=== PATIENT | female | born 1990 | race Caucasian/White ===

== ENCOUNTER 2017-01-26 08:00 | Outpatient (CLI) | payer SELFPAY ==
[2017-01-26 21:06] LABS: BILIRUBIN,URINE NEGATIVE (NEGATIVE)
[2017-01-26 21:10] LABS: BASOPHILS # (AUTO) 0.1 10^3/uL (0.0-0.1); BASOPHILS % (AUTO) 0.8 %; EOSINOPHILS # (AUTO) 0.2 10^3/uL (0.0-0.7); EOSINOPHILS % (AUTO) 1.6 %; HCT - HEMATOCRIT 37.6 % (37.0-47.0); HGB - HEMOGLOBIN 12.8 g/dL (12.0-16.0); LYMPHOCYTES # (AUTO) 2.8 10^3/uL (1.5-3.5); LYMPHOCYTES % (AUTO) 22.8 %; MEAN CORPUSCULAR HEMOGLOBIN 29.7 pg (27.0-31.0); MEAN CORPUSCULAR HGB CONC 34.1 g/dL (32.0-36.0); MEAN CORPUSCULAR VOLUME 87.3 fL (81.0-99.0); MEAN PLATELET VOLUME 7.9 fL (7.9-10.8); MONOCYTES # (AUTO) 0.5 10^3/uL (0.0-1.0); MONOCYTES % (AUTO) 4.3 %; NEUTROPHILS # (AUTO) 8.6 10^3/uL (1.5-6.6); NEUTROPHILS % (AUTO) 70.5 %; RED BLOOD COUNT 4.31 10^6/uL (4.20-5.40); RED CELL DISTRIBUTION WIDTH 13.1 % (12.0-15.0); UNCORRECTED WHITE BLOOD COUNT 12.1 x10^3/uL; WHITE BLOOD COUNT 12.1 x10^3/uL (4.8-10.8)
[2017-01-26 21:18] LABS: WBC,URINE 0-3 /HPF (0-5)
[2017-01-26 21:19] LABS: UR CULTURE IF IND NOT INDICATED
[2017-02-01 20:28] LABS: TEST RESULT REPORT (())
== END 2017-02-15 23:59 | disposition home or self-care (01) ==
LOC: LAB.N 08:00
PROVIDERS: ATTEND Nurse Practitioner Obstetrics & Gynecology
DX: Z36 Encounter for antenatal screening of mother (principal)
CPT/HCPCS: 36415; 81001; 81599; 85025; 86762; 86850; 86900; 86901; 87086; 87340; 87389

== ENCOUNTER 2017-04-07 07:29 | Outpatient (CLI) | payer MEDICAID ==
--- NOTE | 2017-04-07 14:27 | Ultrasound Report ---
OB ULTRASOUND: 04/07/2017 CLINICAL INDICATION: anatomy. TECHNIQUE: Real-time scanning was performed with fraud representative static images obtained. LAST MENSTRUAL PERIOD 11/11/2016 Clinical Age 21 weeks 0 days US Age 21 weeks 5 days EFW Hadlock 440 grams EFW% Hadlock 78% Heart Rate 140 bpm EDC 08/18/2017 US EDC 08/13/2017 BPD Hadlock 22 weeks 0 days; Mean mm 53 HC Hadlock 21 weeks 6 days; Mean mm 196 AC Hadlock 21 weeks 4 days; Mean mm 165 FL Hadlock 21 weeks 4 days; Mean mm 37 Presentation moving Placental Location posterior Cervical Length 4.4 cm Amniotic Fluid 17.4 cm FINDINGS: There is a single viable intrauterine gestation, in variable position. heart rate is 140 BPM. The placenta is posterior, without evidence of previa. Amniotic fluid volume is subjectively normal. By size, the fetus measures 21 weeks 5 days (21 weeks 0 days by LMP). The following anatomic structures were visualized and appear normal: The intracranial contents, including the ventricles and posterior fossa; the lips and orbits; the spine; the heart, including 4-chamber view and outflow tracts, and diaphragm; the abdominal contents, including the stomach, the bilateral kidneys, and urinary bladder, as well as a normal 3- vessel cord insertion; 4 limbs. No free fluid or adnexal lesion is appreciated. IMPRESSION: SINGLE VIABLE INTRAUTERINE GESTATION, WITH SIZE IN KEEPING WITH LMP DATING. NORMAL ANATOMIC SURVEY. [facility]
== END 2017-04-07 07:30 | disposition home or self-care (01) ==
LOC: DI 07:29
PROVIDERS: ATTEND Registered Nurse
DX: Z36.3 Encounter for antenatal screening for malformations (principal)
CPT/HCPCS: 76811

== ENCOUNTER 2017-05-05 15:08 | Outpatient (CLI) | payer MEDICAID ==
[2017-05-05 16:38] LABS: HCT - HEMATOCRIT 34.9 % (37.0-47.0); HGB - HEMOGLOBIN 11.9 g/dL (12.0-16.0); MEAN CORPUSCULAR HEMOGLOBIN 31.3 pg (27.0-31.0); MEAN CORPUSCULAR HGB CONC 34.1 g/dL (32.0-36.0); MEAN PLATELET VOLUME 7.3 fL (7.9-10.8); RED BLOOD COUNT 3.8 10^6/uL (4.20-5.40); RED CELL DISTRIBUTION WIDTH 13.5 % (12.0-15.0); WHITE BLOOD COUNT 12.5 x10^3/uL (4.8-10.8)
[2017-05-05 16:43] LABS: ALBUMIN/GLOBULIN RATIO 0.9 (1.0-2.2); BILIRUBIN,TOTAL 0.4 mg/dL (0.2-1.0); CALCIUM 10.2 mg/dL (8.5-10.3); CREATININE 0.7 mg/dL (0.4-1.0); POTASSIUM 3.1 mmol/L (3.5-5.0)
== END 2017-05-05 15:09 | disposition home or self-care (01) ==
LOC: LAB 15:08
PROVIDERS: ATTEND Registered Nurse
DX: R03.0 Elevated blood-pressure reading, without diagnosis of hypertension (principal); Z34.82 Encounter for supervision of other normal pregnancy, second trimester
CPT/HCPCS: 36415; 80053; 82570; 82950; 84156; 86850

== ENCOUNTER 2017-05-06 14:39 | Outpatient (CLI) | payer MEDICAID | END 2017-05-06 14:40 | disposition home or self-care (01) | LOC: LAB.R 14:39 | PROVIDERS: ATTEND Registered Nurse | DX: R03.0 Elevated blood-pressure reading, without diagnosis of hypertension (principal) | CPT/HCPCS: 84156 ==

== ENCOUNTER 2017-06-02 12:43 | Outpatient (CLI) | payer MEDICAID ==
--- NOTE | 2017-06-06 15:53 | Ultrasound Report ---
OB FOLLOWUP: 06/02/2017 CLINICAL INDICATION: Size, date discrepancy. TECHNIQUE: Real-time scanning was performed with contracts representative static images obtained. LAST MENSTRUAL PERIOD: 11/06/2016 Clinical Age: 29 weeks 5 days US Age: 30 weeks 6 days EFW Hadlock: 1596 gm EFW% Hadlock: 67% Heart Rate: 127 bpm EDC: 08/13/2017 (on order 08/18/2017) US EDC: 08/05/2017 BPD Hadlock: 31 weeks 1 day; Mean mm 78 HC Hadlock: 32 weeks 1 day; Mean mm 292 AC Hadlock: 30 weeks 5 days; Mean mm 267 FL Hadlock: 29 weeks 4 days; Mean mm 56 Presentation: cephalic Placental Location: posterior Cervical Length: --- Amniotic Fluid: 20.1 FINDINGS There is a single viable intrauterine gestation, in cephalic presentation. heart rate is 127 BPM. The placenta is posterior, without evidence of previa. Amniotic fluid volume is normal, with an ESTRELLA of 20.1. By size, the fetus measures 30 weeks 6 days (29 weeks 5 days by previous scan ). No free fluid or adnexal lesion is appreciated. IMPRESSION: SINGLE VIABLE INTRAUTERINE GESTATION, WITH EXPECTED GROWTH FROM PREVIOUS SCAN. TD: 06/02/2017 16:03 GITA
== END 2017-06-02 12:44 | disposition home or self-care (01) ==
LOC: DI 12:43
PROVIDERS: ATTEND Registered Nurse
DX: O26.843 Uterine size-date discrepancy, third trimester (principal); Z3A.30 30 weeks gestation of pregnancy
CPT/HCPCS: 76816

== ENCOUNTER 2017-06-17 15:57 | Outpatient (CLI) | payer MEDICAID ==
[2017-06-17 16:20] VITALS: BP 142/81
[2017-06-17 17:14] LABS: HGB - HEMOGLOBIN 12.3 g/dL (12.0-16.0); MEAN CORPUSCULAR HEMOGLOBIN 30.6 pg (27.0-31.0); MEAN CORPUSCULAR HGB CONC 33.5 g/dL (32.0-36.0); MEAN CORPUSCULAR VOLUME 91.4 fL (81.0-99.0); MEAN PLATELET VOLUME 6.9 fL (7.9-10.8); RED BLOOD COUNT 4.01 10^6/uL (4.20-5.40); RED CELL DISTRIBUTION WIDTH 13.1 % (12.0-15.0); WHITE BLOOD COUNT 12.8 x10^3/uL (4.8-10.8)
[2017-06-17 17:26] LABS: ALBUMIN 3.3 g/dL (3.2-5.5); ALBUMIN/GLOBULIN RATIO 0.8 (1.0-2.2); BILIRUBIN,TOTAL 0.7 mg/dL (0.2-1.0); CALCIUM 9.5 mg/dL (8.5-10.3); CREATININE 0.6 mg/dL (0.4-1.0); TOTAL PROTEIN 7.2 g/dL (6.7-8.2)
[2017-06-17 18:57] LABS: CREATININE,URINE 88.8 mg/dL; PROTEIN/CREATININE RATIO,URINE 0.1 (<=0.2)
== END 2017-06-17 18:45 | disposition home or self-care (01) ==
LOC: WFO 15:57 → FBP 15:58 → WFO 18:45
PROVIDERS: ATTEND Registered Nurse
DX: O13.3 Gestational [pregnancy-induced] hypertension without significant proteinuria, third trimester (principal); Z3A.31 31 weeks gestation of pregnancy
CPT/HCPCS: 36415; 59025; 80053; 82570; 84156

== ENCOUNTER 2017-06-18 16:04 | Outpatient (CLI) | payer MEDICAID ==
[2017-06-18] MEDS ORDERED: BETAMETHASONE 30 MG/5 ML VIAL IM ONE (16:30)
== END 2017-06-18 16:30 | disposition home or self-care (01) ==
LOC: WFO 16:04 → FBP 16:06 → WFO 16:30
PROVIDERS: ATTEND Registered Nurse
DX: O13.3 Gestational [pregnancy-induced] hypertension without significant proteinuria, third trimester (principal); Z3A.31 31 weeks gestation of pregnancy

== ENCOUNTER 2017-06-19 17:21 | Outpatient (CLI) | payer MEDICAID ==
[2017-06-19] MEDS ORDERED: BETAMETHASONE 30 MG/5 ML VIAL IM ONE (17:27)
[2017-06-19 17:31] VITALS: BP 125/74
== END 2017-06-19 17:59 | disposition home or self-care (01) ==
LOC: WFO 17:21 → FBP 17:24 → WFO 17:59
PROVIDERS: ATTEND Registered Nurse
DX: O13.3 Gestational [pregnancy-induced] hypertension without significant proteinuria, third trimester (principal); Z3A.31 31 weeks gestation of pregnancy
CPT/HCPCS: 96372

== ENCOUNTER 2017-06-22 14:03 | Outpatient (CLI) | payer MEDICAID ==
[2017-06-22 14:20] VITALS: BP 141/92
== END 2017-06-22 14:35 | disposition home or self-care (01) ==
LOC: WFO 14:03 → FBP 14:06 → WFO 14:35
PROVIDERS: ATTEND Registered Nurse
DX: O13.3 Gestational [pregnancy-induced] hypertension without significant proteinuria, third trimester (principal); Z3A.31 31 weeks gestation of pregnancy
CPT/HCPCS: 59025

== ENCOUNTER 2017-06-24 08:00 | Outpatient (CLI) | payer MEDICAID | END 2017-06-24 08:01 | disposition home or self-care (01) | LOC: LAB.R 08:00 | PROVIDERS: ATTEND Registered Nurse | DX: R03.0 Elevated blood-pressure reading, without diagnosis of hypertension (principal); Z34.82 Encounter for supervision of other normal pregnancy, second trimester; Z36.85 Encounter for antenatal screening for Streptococcus B | CPT/HCPCS: 81599; 87081 ==

== ENCOUNTER 2017-06-24 17:14 | Outpatient (CLI) | payer MEDICAID ==
--- NOTE | 2017-06-24 22:18 | Ultrasound Report ---
EXAM: BIOPHYSICAL PROFILE OB EXAM DATE: 06/24/2017 06:27 PM. CLINICAL HISTORY: Gestational hypertension without significant proteinuria, third trimester. COMPARISON: OB ultrasound 06/02/2017. TECHNIQUE: Real-time sonographic evaluation of the fetus performed by the elementary school professional. Multiple repre sentative static images were saved for review. FINDINGS: Established EGA is 32 weeks 6 days with MARLA 08/13/2017. Cardiac activity 140 bpm. Presentation is cephalic. Placenta position is posterior. Amniotic fluid index measures 21.1 cm with an MVP of 7 cm, within normal limits. Cervical length appears long and closed measuring 4.5 cm. Biophysical profile: breathin movements: 2 tone: 2 Amniotic fluid: 2 Total score 8 out of 8. IMPRESSION: 1. Mendoza live intrauterine with gestational age 32 weeks 6 days based on established ED D of 08/13/2017. 2. Biophysical profile score 8 of 8, normal. MACARENA Referring Provider Line: [phone] SITE ID: [id number]
== END 2017-06-24 17:15 | disposition home or self-care (01) ==
LOC: DI 17:14
PROVIDERS: ATTEND Registered Nurse
DX: O13.3 Gestational [pregnancy-induced] hypertension without significant proteinuria, third trimester (principal); Z34.82 Encounter for supervision of other normal pregnancy, second trimester; Z36.85 Encounter for antenatal screening for Streptococcus B; R03.0 Elevated blood-pressure reading, without diagnosis of hypertension
CPT/HCPCS: 76819; 81599; 87081

== ENCOUNTER 2017-06-29 14:09 | Outpatient (CLI) | payer MEDICAID ==
[2017-06-29 15:09] VITALS: BP 138/81
== END 2017-06-29 15:55 | disposition home or self-care (01) ==
LOC: WFO 14:09 → FBP 14:10 → WFO 15:55
PROVIDERS: ATTEND Obstetrics & Gynecology
DX: O16.3 Unspecified maternal hypertension, third trimester (principal); Z3A.32 32 weeks gestation of pregnancy
CPT/HCPCS: 59025

== ENCOUNTER 2017-07-01 15:51 | Outpatient (CLI) | payer MEDICAID ==
--- NOTE | 2017-07-02 09:46 | Ultrasound Report ---
EXAM: ULTRASOUND BIOPHYSICAL PROFILE EXAM DATE: 07/01/2017 04:45 PM. CLINICAL HISTORY: Gestational hypertension. Check BPP. Established MARLA 08/13/2017 (33-6/7 weeks). COMPARISON: 06/24/2017. TECHNIQUE: Real-time sonographic evaluation of the fetus performed by the cylinder die machine operator. Multiple repre sentative static images were saved for review. GENERAL EVALUATION Mendoza . Cardiac activity: 152 bpm. movement: Visualized. Presentation: Breech. Placenta: Posterior. Amniotic fluid: Upper normal. ESTRELLA 22.8 cm. MVP 7.3 cm. BIOPHYSICAL PROFILE Breathing = 2 Movement = 2 Tone = 2 Amniotic Fluid = 2 Total 12/29 IMPRESSION: 1. Live fetus in breech presentation at 33-6/7 weeks based on the established MARLA of 08/13/2017. 2. Reassuring 12/29 BPP score. 3. Upper normal amniotic fluid volume, ESTRELLA 22.8. 4. Posterior placenta. MACARENA Referring Provider Line: [phone] SITE ID: [id number]
== END 2017-07-01 15:52 | disposition home or self-care (01) ==
LOC: DI 15:51
PROVIDERS: ATTEND Registered Nurse
DX: O13.3 Gestational [pregnancy-induced] hypertension without significant proteinuria, third trimester (principal); O32.1XX0 Maternal care for breech presentation, not applicable or unspecified; Z3A.33 33 weeks gestation of pregnancy
CPT/HCPCS: 76819

== ENCOUNTER 2017-07-06 14:25 | Outpatient (CLI) | payer MEDICAID ==
[2017-07-06 14:41] VITALS: BP 134/76
== END 2017-07-06 15:18 | disposition home or self-care (01) ==
LOC: WFO 14:25 → FBP 14:27 → WFO 15:18
PROVIDERS: ATTEND Obstetrics & Gynecology
DX: O13.3 Gestational [pregnancy-induced] hypertension without significant proteinuria, third trimester (principal); Z3A.33 33 weeks gestation of pregnancy
CPT/HCPCS: 59025

== ENCOUNTER 2017-07-08 15:01 | Outpatient (CLI) | payer MEDICAID ==
--- NOTE | 2017-07-08 18:52 | Ultrasound Report ---
BIOPHYSICAL PROFILE: 07/08/2017 CLINICAL INDICATION: Gestational hypertension. FINDINGS: The fetus receives 2 points for breathing, 2 points for movements, 2 points for tone, and 2 points for amniotic fluid volume, yielding a final score of 8/8. The fetus is in cephalic presentation. heart rate is 137 BPM. The placenta is posterior, without evidence of previa. IMPRESSION: 8/8 BIOPHYSICAL PROFILE. TD: 07/08/2017 18:51 GITA
--- NOTE | 2017-07-09 13:01 | Ultrasound Report ---
OB FOLLOWUP: 07/08/2017 CLINICAL INDICATION: Check growth. COMPARISON: 06/02/2017 TECHNIQUE: Real-time scanning was performed with financial service representative static images obtained. LAST MENSTRUAL PERIOD 11/06/2016 CLINICAL AGE 34 weeks 6 days US AGE 36 weeks 0 days EFW HADLOCK 2865 grams EFW% HADLOCK 81% HEART RATE 135 bpm EDC 08/13/2017 US EDC 08/05/2017 BPD HADLOCK 35 weeks 6 days; Mean mm 89 HC HADLOCK 37 weeks 2 days; Mean mm 329 AC HADLOCK 37 weeks 0 days; Mean mm 331 FL HADLOCK 34 weeks 0 days; Mean mm 66 PRESENTATION cephalic PLACENTAL LOCATION posterior CERVICAL LENGTH 3.9 cm AMNIOTIC FLUID 22.2 cm; MVP 6.3 cm FINDINGS There is a single viable intrauterine gestation, in cephalic presentation. heart rate is 135 BPM. The placenta is posterior, without evidence of previa. Amniotic fluid volume is normal, with an ESTRELLA of 22.2. By size, the fetus measures 36 weeks 0 days (34 weeks 6 days by previous sonogram). No free fluid or adnexal lesion is appreciated. IMPRESSION: SINGLE VIABLE INTRAUTERINE GESTATION, WITH EXPECTED GROWTH FROM PREVIOUS SONOGRAM. ESTIMATED WEIGHT BY HADLOCK METHOD IS 2865 GRAMS. TD: 07/08/2017 18:56 [facility]
== END 2017-07-08 15:02 | disposition home or self-care (01) ==
LOC: DI 15:01
PROVIDERS: ATTEND Registered Nurse
DX: O13.3 Gestational [pregnancy-induced] hypertension without significant proteinuria, third trimester (principal)
CPT/HCPCS: 76816; 76819

== ENCOUNTER 2017-07-09 08:03 | Outpatient (CLI) | payer MEDICAID ==
[2017-07-09 08:39] LABS: MEAN CORPUSCULAR HEMOGLOBIN 31.7 pg (27.0-31.0); MEAN CORPUSCULAR HGB CONC 35.8 g/dL (32.0-36.0); MEAN CORPUSCULAR VOLUME 88.7 fL (81.0-99.0); MEAN PLATELET VOLUME 6.9 fL (7.9-10.8); RED BLOOD COUNT 3.77 10^6/uL (4.20-5.40); RED CELL DISTRIBUTION WIDTH 13.4 % (12.0-15.0)
[2017-07-09 08:41] LABS: ALBUMIN 3.1 g/dL (3.2-5.5); ALBUMIN/GLOBULIN RATIO 0.8 (1.0-2.2); BILIRUBIN,TOTAL 0.5 mg/dL (0.2-1.0); CALCIUM 9.4 mg/dL (8.5-10.3); CREATININE 0.8 mg/dL (0.4-1.0); TOTAL PROTEIN 6.8 g/dL (6.7-8.2)
[2017-07-09 10:04] LABS: PROTEIN/CREATININE RATIO,URINE 0.1 (<=0.2)
== END 2017-07-09 08:04 | disposition home or self-care (01) ==
LOC: LAB 08:03
PROVIDERS: ATTEND Registered Nurse
DX: O13.3 Gestational [pregnancy-induced] hypertension without significant proteinuria, third trimester (principal)
CPT/HCPCS: 36415; 80053; 82570; 84156

== ENCOUNTER 2017-07-13 14:07 | Outpatient (CLI) | payer MEDICAID ==
[2017-07-13 14:46] VITALS: BP 124/78
== END 2017-07-13 14:52 | disposition home or self-care (01) ==
LOC: WFO 14:07 → FBP 14:10 → WFO 14:52
PROVIDERS: ATTEND Registered Nurse
DX: O13.3 Gestational [pregnancy-induced] hypertension without significant proteinuria, third trimester (principal); Z3A.34 34 weeks gestation of pregnancy
CPT/HCPCS: 59025

== ENCOUNTER 2017-07-15 15:14 | Outpatient (CLI) | payer MEDICAID ==
--- NOTE | 2017-07-16 00:50 | Ultrasound Report ---
EXAM: BIOPHYSICAL PROFILE EXAM DATE: 07/15/2017 05:17 PM. CLINICAL HISTORY: Gestational hypertension without significant proteinuria, third. COMPARISON: None. TECHNIQUE: Real-time sonographic evaluation of the fetus performed by the hotel front desk agent. Multiple repre sentative static images were saved for review. DATING: Established EGA 35 weeks 6 days with MARLA 08/13/2017. GENERAL EVALUATION Mendoza . Cardiac activity: 138 bpm. movement: Visualized. Presentation: Transverse with the head to the maternal left. Placenta: Posterior position. No evidence for previa or abruption. Amniotic fluid: Normal. ESTRELLA 22.8 cm. MVP 6.9 cm. Cervix is closed measuring 5.2 cm. BIOPHYSICAL PROFILE Breathing = 2 Movement = 2 Tone = 2 Amniotic Fluid = 2 Total 12/29 IMPRESSION: 1. Mendoza live intrauterine with gestational age 35.6 based on established MARLA. 2. Biophysical profile score 8 of 8. MACARENA Referring Provider Line: [phone] SITE ID: [id number]
== END 2017-07-15 15:15 | disposition home or self-care (01) ==
LOC: DI 15:14
PROVIDERS: ATTEND Registered Nurse
DX: O13.3 Gestational [pregnancy-induced] hypertension without significant proteinuria, third trimester (principal)
CPT/HCPCS: 76819

== ENCOUNTER 2017-07-19 15:27 | Outpatient (CLI) | payer MEDICAID ==
[2017-07-19 16:08] LABS: BASOPHILS # (AUTO) 0.1 10^3/uL (0.0-0.1); BASOPHILS % (AUTO) 0.8 %; CREATININE 0.7 mg/dL (0.4-1.0); EOSINOPHILS # (AUTO) 0.1 10^3/uL (0.0-0.7); EOSINOPHILS % (AUTO) 1.3 %; HGB - HEMOGLOBIN 11.7 g/dL (12.0-16.0); LYMPHOCYTES % (AUTO) 17.3 %; MEAN CORPUSCULAR HEMOGLOBIN 30.5 pg (27.0-31.0); MEAN CORPUSCULAR HGB CONC 34.4 g/dL (32.0-36.0); MEAN CORPUSCULAR VOLUME 88.6 fL (81.0-99.0); MEAN PLATELET VOLUME 6.9 fL (7.9-10.8); MONOCYTES # (AUTO) 0.7 10^3/uL (0.0-1.0); MONOCYTES % (AUTO) 6.3 %; NEUTROPHILS # (AUTO) 8.5 10^3/uL (1.5-6.6); NEUTROPHILS % (AUTO) 74.3 %; PLT - PLATELET COUNT 225 10^3/uL (130-450); RED BLOOD COUNT 3.83 10^6/uL (4.20-5.40); RED CELL DISTRIBUTION WIDTH 13.3 % (12.0-15.0); WHITE BLOOD COUNT 11.5 x10^3/uL (4.8-10.8)
[2017-07-19 16:10] LABS: URIC ACID 5.1 mg/dL (2.6-7.2)
[2017-07-19 16:51] VITALS: BP 139/89
[2017-07-19 16:57] LABS: CREATININE,URINE 72.8 mg/dL; PROTEIN/CREATININE RATIO,URINE 0.2 (<=0.2)
== END 2017-07-19 16:05 | disposition home or self-care (01) ==
LOC: WFO 15:27 → FBP 15:29 → WFO 16:05
PROVIDERS: ATTEND Registered Nurse
DX: O13.3 Gestational [pregnancy-induced] hypertension without significant proteinuria, third trimester (principal); Z3A.35 35 weeks gestation of pregnancy
CPT/HCPCS: 36415; 59025; 82565; 82570; 83615; 84156; 84450; 84460; 84550; 85025

== ENCOUNTER 2017-07-20 08:35 | Inpatient (IN) | payer MEDICAID ==
[2017-07-21] MEDS ORDERED: SODIUM CHLORIDE FLUSH 0.9% 10 ML SYRINGE ONE (07:54)
[2017-07-21] MEDS ORDERED: LABETALOL 20 MG/4 ML SYRINGE IV PRN (07:57)
[2017-07-21] MEDS ORDERED: fentaNYL 100 MCG/2 ML VIAL IVP PRN (07:57)
[2017-07-21] MEDS ORDERED: ONDANSETRON 4 MG/2 ML VIAL IVP PRN (07:57)
[2017-07-21] MEDS ORDERED: SODIUM CHLORIDE FLUSH 0.9% 10 ML SYRINGE IVP PRN (07:57)
[2017-07-21] MEDS ORDERED: OXYTOCIN/SODIUM CHLORIDE 250 ML IV ONE (07:57)
--- NOTE | 2017-07-21 08:29 | HISTORY & PHYSICAL EXAMINATION ---
Admit History - Instructions [place]/Slash: -Left hand click circles element as positive or present. -Right hand click slashes element as negative or not present. - Visit Reason Visit Reason: Other (Induction of labor for mild PET by BP criteria) - : 1 Parity: 0 Premature: 0 Ectopic: 0 : 0 Care: positive: [facility] (beginning in 1st trimester >12 visits) Risk/History: positive: None Complications This : positive: induced HTN, Pre- eclampsia (mild, BP criteria, TP:Cr 0.2; serum creatinine 0.7) Smoking Status: Never smoker - Mother's Labs Mother's Blood Type: positive: O Mother's RH: positive: Positive GBS: positive: Group B Step Negative Rubella Status: positive: Immune (Cinthia is a 27 y/o @ 36.0 weeks' gestation by 1st trimester US whose care has been complicated by GHTN w / elevated BP first noted 05/05/18 @ 24 weeks' gestation. Her PET evaluation has been consistently negative & 24-hr urine protein was 117mg/L. She began labetalol 100mg po BID @ 31 weeks' gestation secondary to persistently elevated BPs, and she required dosage increase to 200mg po BID @ 34 weeks' gestation in order to maintain normotensive status. Despite taking labetalol, she has continued to have labile BPs, with occasional readings exceeding 150/100. She has had an isolated episode of visual disturbances and no ELLIOTT or other neuro symptoms. She has had no RUQ/epigastric/shoulder pain. She has had serial SANGITA that have demonstrated normal EFW, most recently 07/08/17 81st percentile. She received betamethasone series @ 31 weeks' gestation secondary to her development of progressive hypertension @ that time. She screened negative for GBS @ 32 weeks' gestation. She presents today w/o complaint of uterine contractions, some cramping, no LOF/no VB; she reports good FM. We reviewed risks/benefits/alternatives to IOL & importance of patient, persistent preinduction cervical ripening as well as careful monitoring for developing severe PET & intervention as clinically warranted. We reviewed /maternal risks associated w/ expectant management vs. IOL. Pt & partner articulate full understanding of risks/benefits & elect IOL w/ preinduction cervical ripening utilizing buccal misoprostol. Full PARQ held. Informed consent obtained.) Meds/Allgy - Home Medications Home Medications: Ambulatory Orders Medication Instructions Recorded Confirmed Cephalexin [Keflex] 500 mg PO QID 7 Days capsule 02/05/15 - Allergies Allergies/Adverse Reactions: Allergies Allergy/AdvReac Type Severity Reaction Status Date / Time No Known Drug Allergies Allergy Verified 01/31/15 21:24 Physical - Abdominal Exam Vital Signs: BP this am s/p 200mg po labetalol 139/89, HR 92, T 97.2, RR 18 Contraction Frequency (min/apart): occasional Contraction Intensity: positive: Mild Uterine Resting Tone: positive: Soft - Monitoring Heart Rate Baseline: 135 Strip Review: positive: Category I - Presentation Presentation: positive: Vertex - Vaginal Exam Membranes: positive: Membranes intact Dilation (in cm): fingertip Effacement (%): 70 Station: positive: -3 Cervical Position: positive: Posterior (soft; Bishops score:) - Speculum Exam Speculum Exam Performed: positive: No - Other Notes Labor Progress Note/Additional Text: ROS: GEN: NO FEVER, CHILLS, SOME FATIGUE HEENT: NO ELLIOTT/VISUAL CHANGES RESP: NO SOB/DYSPNEA/COUGH CARDIAC: NO PALPITATIONS, CP, +EDEMA GI: NO N/V/D, + HEARTBURN : NO DYSURIA, +FREQUENCY, +URGENCY, OCC TRUPTI, NO CHANGES IN VAGINAL D/C OB: +FM, NO LOF/VB, NO PAINFUL CONTRACTIONS, SOME MILD CRAMPING MS: FROM, +B/L PITTING LE EDEMA, +FINGER/FACIAL EDEMA, NO PAIN SKIN: NO RASH, NO PRURITUS NEURO: NO DIZZINESS, NUMBNESS, TINGLING PSYCH: +ANXIETY RE: LABOR, NO DEPRESSION, HOPING FOR UNMEDICATED DELIVERY PE: GEN: AAOX3, NAD WA GRAVID FEMALE HEENT: GROSSLY NORMOCEPHALIC, ATRAUMATIC RESP: LUNGS CTA B/L T/O CARDIAC: RRR NLS1S2, I/ SYSTOLIC MURMUR, NO GALLOP, NO RUB GI: ABD GRAVID, NT, MOVEMENT PALPABLE, FETUS LONGITUDINAL, CEPHALIC PRESENTATION, EFW 7# : NO LESION, NO D/C OB: EFM: B/L 135BPM, + ACCELS, NO DECELS, MOD VARIABILITY, TOCO: OCC UTERINE CONTRACTIONS; SVE: FT/70/-3, IBOW, SOFT, POSTERIOR BISHOPS SCORE = 4 MS: FROM, +2 PITTING B/L LE EDEMA SKIN: WARM, WELL-PERFUSED, C/D/I; NO LESION NEURO: NO FOCAL DEFICIT, B/L LE DTRS +3, NO CLONUS PSYCH: NORMAL MOOD & AFFECT, MILD ANXIETY, WELL-SUPPORTED BY INVOLVED FOB ASSESSMENT: 27 Y/O @ 36 WEEKS' GESTATION BY 1ST TRIMESTER US, MILD PET BY BP CRITERIA, NORMOTENSIVE @ PRESENT, GBS NEGATIVE, CERVICAL STATUS UNFAVORABLE, FHTS CAT I, IBOW, ADEQUATE PAIN CONTROL, REASSURING SURVEILLANCE Plan for Labor - Plan For Labor Plan for Labor: 1. ADMIT TO OBS STATUS FOR CERVICAL RIPENING W/ BUCCAL MISOPROSTOL PER PROTOCOL 2. BUCCAL MISOPROSTOL 25MCG Q 4 HOURS 3. CAREFUL BP MONITORING W/ IV ANTIHYPERTENSIVE THERAPY INDICATED, MAGNESIUM SULFATE INFUSION INITIATION FOR ANY SEVERE-RANGE BPS 4. PET LABS Q 24 HOURS, MORE FREQUENTLY CLINICALLY INDICATED 5. STRICT I & O 6. REVIEWED PAIN MANAGEMENT OPTIONS 7. REASSESS CERVICAL STATUS W/ CLINICAL CHANGE, INITIATE PITOCIN INFUSION WHEN BISHOPS >9 8. EXTENSIVE REVIEW OF PROCESS OF PREINDUCTION CERVICAL RIPENING, ANTICIPATORY GUIDANCE, REVIEWED PET & ASSOCIATED RISKS, NEED FOR ONGOING CAREFUL MONITORING OF MATERNAL STATUS, STATUS, INTERVENTION INDICATED, REVIEWED POSSIBLE SCENARIOS 9. REVIEWED PLAN OF CARE W/ PT, PARTNER, RN @ BEDSIDE & BACKUP MD; ALL IN AGREEMENT, WITHOUT CONCERNS.
[2017-07-21] MEDS: miSOPROStol 100 MCG TABLET BC SCH ×3 (09:01→20:06)
[2017-07-21 09:10] LABS: CREATININE 0.6 mg/dL (0.4-1.0)
[2017-07-21 09:14] LABS: BASOPHILS # (AUTO) 0.1 10^3/uL (0.0-0.1); BASOPHILS % (AUTO) 0.5 %; EOSINOPHILS # (AUTO) 0.1 10^3/uL (0.0-0.7); EOSINOPHILS % (AUTO) 1.2 %; HGB - HEMOGLOBIN 11.4 g/dL (12.0-16.0); LYMPHOCYTES # (AUTO) 1.6 10^3/uL (1.5-3.5); LYMPHOCYTES % (AUTO) 13.7 %; MEAN CORPUSCULAR HEMOGLOBIN 31.2 pg (27.0-31.0); MEAN CORPUSCULAR HGB CONC 35.3 g/dL (32.0-36.0); MEAN CORPUSCULAR VOLUME 88.4 fL (81.0-99.0); MEAN PLATELET VOLUME 6.9 fL (7.9-10.8); MONOCYTES # (AUTO) 0.6 10^3/uL (0.0-1.0); MONOCYTES % (AUTO) 5.3 %; NEUTROPHILS # (AUTO) 9.2 10^3/uL (1.5-6.6); NEUTROPHILS % (AUTO) 79.3 %; PLT - PLATELET COUNT 228 10^3/uL (130-450); RED BLOOD COUNT 3.66 10^6/uL (4.20-5.40); RED CELL DISTRIBUTION WIDTH 12.9 % (12.0-15.0); WHITE BLOOD COUNT 11.6 x10^3/uL (4.8-10.8)
[2017-07-21] MEDS: OXYTOCIN/SODIUM CHLORIDE 500 ML IV SCH (09:37)
[2017-07-21] MEDS: LACTATED RINGERS 1,000 ML IV SCH (09:37)
[2017-07-21] MEDS: LABETALOL 100 MG TABLET PO SCH ×2 (09:38→20:05)
[2017-07-21 09:49] LABS: CREATININE,URINE 51.3 mg/dL; PROTEIN/CREATININE RATIO,URINE 0.1 (<=0.2)
[2017-07-21] MEDS: SODIUM CHLORIDE FLUSH 0.9% 10 ML SYRINGE IVP SCH ×2 (14:04→17:52)
--- NOTE | 2017-07-21 20:07 | PROVIDER PROGRESS NOTE ---
Labor Progress Note - Uterine Monitoring Uterine Monitoring Mode: positive: External toco Contraction Frequency (min/apart): 2-5 min Contraction Intensity: positive: Mild Uterine Resting Tone: positive: Soft - Monitoring Monitor Mode: positive: External ultrasound Heart Rate Baseline: 135bpm Heart Rate Variability: positive: Moderate (6-25 bmp) Accelerations: positive: Present, 15x15 Decelerations: positive: None Strip Review: positive: Category I - Labor Progress Note Labor Progress Note/Additional Text: S: Cinthia is feeling well. She denies ELLIOTT/visual disturbances, abdominal pain. She denies bloody show, LOF. She reports good FM. She has been tolerating po intake & has been judicious in recording her intake & output. Her partner, Christiano, is present @ the bedside & is supportive. She feels that she can rest tonight. She has some mild back discomfort but does not otherwise report pain. O: VS: T: 97.7; BP: 134/79, HR 77 RR 16 EFM: BL 135bpm, + accels, no decels, mod variability TOCO: irritability & UCs q2-5 min, palpably mild SVE: deferred secondary to no clinical indication & starting Reis's of 4 PET labs WNL, TP:Cr 0.1; fluid output exceeds input A: 27 y/o @ 36 weeks' gestation IOL for PET by BP criteria, no significant proteinuria Normotensive @ present FHTs cat I GBS neg w/ IBOW s/p BMZ x2 @ 32 weeks' gestation oral anti-hypertensive agents unfavorable cervical status, undergoing preinduction cervical ripening w/ buccal misoprostol, s/p 2 doses, no clinical change P: 1. continue buccal misoprostol 25mcg Q 4 hrs per protocol, reviewed options for dinoprostone vaginal insert vs. mechanical cervical ripening overnight, pt declines & elects to continue w/ misoprostol 2. Reviewed importance of patient, persistent preinduction cervical ripening 3. Continue careful BP & I/O monitoring, repeat PET labs in am 4. CEFM 5. Reassess cervical status x24 hours of cervical ripening, earlier PRN clinical indication 6. Initiate IV antihypertensive therapy & Mag Sulfate for severe-range BPs 7. Reviewed plan of care w/ pt, partner, RN @ bedside & Dr. Felisa MD, back-up FRAME CHANGER; all in agreement, without concerns.
[2017-07-22] MEDS: miSOPROStol 100 MCG TABLET BC SCH ×4 (00:06→21:35)
[2017-07-22 05:59] LABS: BASOPHILS # (AUTO) 0.1 10^3/uL (0.0-0.1); BASOPHILS % (AUTO) 0.5 %; EOSINOPHILS # (AUTO) 0.1 10^3/uL (0.0-0.7); HGB - HEMOGLOBIN 11.7 g/dL (12.0-16.0); LYMPHOCYTES # (AUTO) 2.1 10^3/uL (1.5-3.5); LYMPHOCYTES % (AUTO) 13.9 %; MEAN CORPUSCULAR HGB CONC 34.8 g/dL (32.0-36.0); MEAN CORPUSCULAR VOLUME 89.1 fL (81.0-99.0); MEAN PLATELET VOLUME 6.8 fL (7.9-10.8); MONOCYTES # (AUTO) 0.9 10^3/uL (0.0-1.0); MONOCYTES % (AUTO) 6.2 %; NEUTROPHILS # (AUTO) 11.6 10^3/uL (1.5-6.6); NEUTROPHILS % (AUTO) 78.4 %; PLT - PLATELET COUNT 218 10^3/uL (130-450); RED BLOOD COUNT 3.77 10^6/uL (4.20-5.40); RED CELL DISTRIBUTION WIDTH 13.2 % (12.0-15.0); WHITE BLOOD COUNT 14.8 x10^3/uL (4.8-10.8)
[2017-07-22 06:02] LABS: CREATININE 0.7 mg/dL (0.4-1.0)
[2017-07-22] MEDS: SODIUM CHLORIDE FLUSH 0.9% 10 ML SYRINGE IVP SCH ×3 (06:35→15:09)
[2017-07-22] MEDS: LABETALOL 100 MG TABLET PO SCH ×2 (08:06→20:01)
--- NOTE | 2017-07-22 09:37 | PROVIDER PROGRESS NOTE ---
Labor Progress Note - Uterine Monitoring Uterine Monitoring Mode: positive: External toco Contraction Frequency (min/apart): mild UCs Contraction Intensity: positive: Mild Uterine Resting Tone: positive: Soft - Monitoring Monitor Mode: positive: External ultrasound Heart Rate Baseline: 145 Heart Rate Variability: positive: Moderate (6-25 bmp) Accelerations: positive: Present, 15x15 Decelerations: positive: None - Vaginal Exam Dilation (in cm): deferred - Labor Progress Note Labor Progress Note/Additional Text: S: Cinthia is doing well, able to rest overnight. Some back discomfort. No pain w/ uterine irritability/contractions. Christiano is present @ the bedside & supportive. Cinthia denies ELLIOTT/visual disturbances/abdominal discomfort. No bloody show. No LOF. O: VS: BP 131/77; T 97.8; HR 98; RR 18 EFM: BL 145bpm, +accels, no decels, mod jermaine TOCO: Irreg uterine irritability, mild contractions SVE: not indicated; no clinical change--last misoprostol dosing 00:00 H/H/PLT stable; PET labs stable A: 27 y/o @ 36w1d mild PET by BP criteria Normotensive @ present on oral antihypertensive Unfavorable cervical status w/ Eris's of 4 on admit, s/p 4 buccal doses of misoprostol in 24 hour-period GBS negative, IBOW FHTs cat I Adequate pain control, not in labor PET labs stable P: 1. Continue cervical ripening w/ buccal misoprostol per protocol, recommend dosing q 4 hours, reviewed protocol w/ RN & orders, will get 5th dose of misoprostol now & reassess cervical status @ 1200, earlier PRN 2. Continue careful BP/I&O monitoring 3. PET labs daily, more frequently as indicated 4. IV antihypertensive therapy PRN severe-range BPs 5. Encouraged ambulation, diversionary activity
--- NOTE | 2017-07-22 17:06 | PROVIDER PROGRESS NOTE ---
Labor Progress Note - Uterine Monitoring Uterine Monitoring Mode: positive: External toco Contraction Frequency (min/apart): 2-6 Contraction Intensity: positive: Mild to moderate Uterine Resting Tone: positive: Soft - Monitoring Monitor Mode: positive: External ultrasound Heart Rate Baseline: 130 Heart Rate Variability: positive: Moderate (6-25 bmp) Accelerations: positive: Present, 15x15 Decelerations: positive: None Strip Review: positive: Category I - Vaginal Exam Dilation (in cm): FT Effacement (%): 75 Station: 1 Cervical Position: Anterior (soft, Reis's score =9) - Labor Progress Note Labor Progress Note/Additional Text: S: Cinthia reports some cramping discomfort & lower back discomfort w/ uterine contractions. No LOF, no VB. +FM. No ELLIOTT/visual disturbances/abd pain. Ambulating. Has used ball some & jacuzzi. Feeling irritated about FHT monitoring. Tolerating po intake. Christiano & her mother @ bedside, supportive. O: VS: T 98.1 HR 95 BP 133/83 RR 20 EFM: BL 130bpm, +accels, no decels, mod jermaine TOCO: UCs q2-6 min, palp mod SVE: FT/75%/+1/anterior/soft; IBOW, position difficult to discern; Reis' s score now 9 PET labs stable O > I A: 27 y/o @ 36w1d by 1st trimester US, mild PET by BP criteria Normotensive on oral antihypertensive therapy s/p prostaglandin cervical ripening GBS negative w/ IBOW FHTs cat I Adequate pain control, not in labor No s/sx severe PET P: 1. Reviewed options for management @ this point, pt elects 1 more dose buccal misoprostol followed by linn balloon insertion to increase cervical dilation if no progressive cervical change; due for misoprostol @ 1900, reviewed all options 2. Continue careful BP & I/O monitoring, PET labs in am unless clinically indicated prior 3. IV antihypertensive therapy/Mag Sulfate for severe-range BPs 4. Reviewed optimal positioning, diversionary activity 5.Will reassess cervical status s/p next dose of misoprostol, earlier PRN 6. Reviewed plan of care w/ pt, partner, RN @ bedside & Dr. Felisa MD, back-up DIRECTOR NEWS; all in agreement, without concerns.
--- NOTE | 2017-07-23 02:21 | PROVIDER PROGRESS NOTE ---
Labor Progress Note - Uterine Monitoring Uterine Monitoring Mode: positive: External toco Contraction Frequency (min/apart): 2-5 Contraction Intensity: positive: Mild to moderate Uterine Resting Tone: positive: Soft - Monitoring Monitor Mode: positive: External ultrasound Heart Rate Baseline: 125 Heart Rate Variability: positive: Moderate (6-25 bmp) Accelerations: positive: Present, 15x15 Decelerations: positive: None Strip Review: positive: Category I - Vaginal Exam Dilation (in cm): 1 Effacement (%): 75 Station: 1 Cervical Position: Anterior (soft; Reis's =10) - Labor Progress Note Labor Progress Note/Additional Text: S: Cinthia is doing well, although she is mildly frustrated by her slow progress; she reports significant lower back discomfort & difficulty sleeping as a result. She has no abdominal discomfort. She has had a little bloody show when using the restroom. She denies ELLIOTT/vision changes. She desires sleep aid & cervical catheter placement for further cervical ripening, would like to be off the monitor as able to promote sleep this evening, as she had limited ability to sleep last night. Full PARQ held re: placement of [place] Cervical Ripening Catheter, pt desires placement. O: T: 98.1 HR 95 BP 122/70 RR 18 EFM: BL 125bpm, +accels, no decels, mod jermaine TOCO: uterine irritability & palpable uterine contractions q2-5 min x60 seconds SVE: 1/75/+1/anterior/soft, Reis's 10; IBOW, position difficult to appreciate 18Fr Tayla catheter placed w/ ease through cervical os using speculum for direct visualization, inflated w/ sterile NaCl, 60mL uterine balloon, 40mL vaginal balloon, traction applied & catheter secured w/ adhesive to medial aspect L thigh; pt aline well. A: 27 y/o @ 36w2d for IOL secondary to mild PET by BP criteria, PET labs WNL s/p prostaglandin cervical ripening x7 doses buccal misoprostol favorable cervical status w/ minimal dilatation Normotensive on po antihypertensive agent--no severe-range BPs since admission GBS negative w/ IBOW FHTs consistently cat I Lumbar discomfort Difficulty sleeping; not in active labor P: 1. Tayla catheter placed; will reassess cervical status x12 hours or w/ expulsion, earlier PRN 2. PET labs this am 3. 50mg vistaril IM x1 to assist w/ sleep 4. K-pad to lower back 5. Reviewed optimal positioning, encouraged maternal rest in lateral recumbent position w/ peanut ball in place 6. ok to d/c CEFM for rest, reassess FHTs x4 hours, reassess BP x4 hours 7. Reviewed cervical ripening process, anticipate initiation of Pitocin w/ expulsion of balloon, reviewed @ length 8. Ongoing careful monitoring of I/O, PET labs, VS; initiation of IV antihypertensives & Mag Sulfate for severe-range BPs 9. Reviewed plan of care w/ pt, RN @ bedside & Dr. Felisa MD; all in agreement, without concerns.
[2017-07-23] MEDS ORDERED: MAGNESIUM HYDROXIDE 2,400 MG/30 ML UDC PO PRN (02:29)
[2017-07-23] MEDS: SODIUM CHLORIDE FLUSH 0.9% 10 ML SYRINGE IVP SCH (04:14)
[2017-07-23] MEDS: LACTATED RINGERS 1,000 ML IV SCH ×4 (06:38→16:18)
[2017-07-23 06:40] LABS: BASOPHILS # (AUTO) 0.1 10^3/uL (0.0-0.1); BASOPHILS % (AUTO) 0.3 %; EOSINOPHILS % (AUTO) 0.2 %; HGB - HEMOGLOBIN 13.1 g/dL (12.0-16.0); LYMPHOCYTES # (AUTO) 1.1 10^3/uL (1.5-3.5); LYMPHOCYTES % (AUTO) 5.6 %; MEAN CORPUSCULAR HEMOGLOBIN 30.8 pg (27.0-31.0); MEAN CORPUSCULAR HGB CONC 34.8 g/dL (32.0-36.0); MEAN CORPUSCULAR VOLUME 88.5 fL (81.0-99.0); MEAN PLATELET VOLUME 6.8 fL (7.9-10.8); MONOCYTES # (AUTO) 0.5 10^3/uL (0.0-1.0); MONOCYTES % (AUTO) 2.7 %; NEUTROPHILS # (AUTO) 17.3 10^3/uL (1.5-6.6); NEUTROPHILS % (AUTO) 91.2 %; PLT - PLATELET COUNT 235 10^3/uL (130-450); RED BLOOD COUNT 4.28 10^6/uL (4.20-5.40)
[2017-07-23 06:52] LABS: CREATININE 0.7 mg/dL (0.4-1.0); URIC ACID 6.3 mg/dL (2.6-7.2)
[2017-07-23] MEDS ORDERED: fent/BUPIV 2 MCG/0.125% 250 ML EP ONE (07:05)
[2017-07-23] MEDS ORDERED: BUPIVACAINE 0.25% PF 10 ML VIAL SUBQ ONE (07:25)
[2017-07-23] MEDS ORDERED: fent/BUPIV 2 MCG/0.125% 250 ML EP PRN (07:30)
[2017-07-23] MEDS ORDERED: LACTATED RINGERS 500 ML IV ONE (07:30)
[2017-07-23] MEDS ORDERED: NALOXONE 0.4 MG/ML VIAL IVP PRN (07:30)
[2017-07-23] MEDS ORDERED: NALBUPHINE 20 MG/ML AMP IVP PRN (07:30)
[2017-07-23] MEDS ORDERED: ONDANSETRON 4 MG/2 ML VIAL IVP PRN (07:30)
[2017-07-23] MEDS ORDERED: ePHEDrine 50 MG/ML VIAL IVP PRN (07:30)
--- NOTE | 2017-07-23 08:26 | PROVIDER PROGRESS NOTE ---
Labor Progress Note - Uterine Monitoring Uterine Monitoring Mode: positive: External toco Contraction Frequency (min/apart): erratic contaction activity q 2-6 minutes Contraction Intensity: positive: Moderate Uterine Resting Tone: positive: Soft - Monitoring Monitor Mode: positive: Spiral electrode (placed w/o incident for unclear decelerations assessed by external FHT monitoring w/ Doppler) Heart Rate Baseline: 145 Heart Rate Variability: positive: Moderate (6-25 bmp) Accelerations: positive: Present, 15x15 Decelerations: positive: None Strip Review: positive: Category I - Vaginal Exam Dilation (in cm): 4-5 Effacement (%): 75 Station: -1 Cervical Position: Anterior - Labor Progress Note Labor Progress Note/Additional Text: S: Cinthia is comfortable w/ her epidural in place & is looking forward to being able to sleep. Christiano & her mother are @ the bedside, involved & supportive. I was called to assess pt secondary to some FHT decelerations on external Doppler assessment s/p epidural placement, honey in 90s over a period of 90 seconds x3 w/ return to baseline w/ intrauterine resuscitation; on review of strip, appear to be mirroring maternal HR @ that time. O: T 98.1 HR 78bpm, BP 125/60, RR 18 EFM: FSE placed w/o incident, s/p removal of Tayla catheter, AROM w/ FSE for copious CAF; BL 145bpm, + accels, no decels, mod variability TOCO: UCs q 2-6 minutes SVE: 4-5/75%/-1, leaking copious CAF PET labs stable: Cr presently 0.7, AST 30 A: 27 y/o @ 36w2d, mild PET by BP criteria, normotensive on oral antihypertensive agent No severe-range BPs since admission Stable PET labs I < O GBS negative, AROM for CAF s/p effective prostglandin/mechanical cervical ripening Adequate pain control w/ epidural anesthesia FHTs presently Cat I P: 1. Reassess cervical status x2 hours, earlier PRN; if no cervical change, begin Pitocin infusion & titrate per protocol to adequate contraction pattern by tocometry 2. Continue ongoing careful monitoring of BP; initiate IV antihypertensive/Mag Sulfate therapy for severe-range BPs 3. Continue daily PET labs, more frequent assessment as clinically indicated 4. Continue ongoing strict I&O 5. Encouraged maternal rest; reviewed optimal positioning to encourage rotation & descent, particularly s/p de-stationing w/ Tayla catheter placement 6. Reviewed plan of care w/ pt, partner & RN @ bedside; Dr. Morgan DO, back-up MD, notified as to pt clinical status; all in agreement, without concerns.
[2017-07-23] MEDS ORDERED: OXYTOCIN/SODIUM CHLORIDE 500 ML IV SCH (09:00)
[2017-07-23] MEDS: OXYTOCIN/SODIUM CHLORIDE 500 ML IV SCH (10:31)
--- NOTE | 2017-07-23 12:55 | PROVIDER PROGRESS NOTE ---
Labor Progress Note - Uterine Monitoring Uterine Monitoring Mode: positive: IUPC (placed w/ ease secondary to difficulty assessing contraction frequency, intensity, duration) Contraction Intensity: positive: Mild to moderate Uterine Resting Tone: positive: Soft Other Uterine Monitoring: Baseline 0mmHg, peak 25mmHg w/ 1mU/min Pitocin infusing - Monitoring Monitor Mode: positive: Spiral electrode Heart Rate Baseline: 135 Heart Rate Variability: positive: Moderate (6-25 bmp) Accelerations: positive: Present, 15x15 Decelerations: positive: Late (occasional to honey in 80s, late-appearing ; difficult to assess secondary to poor tocometry; resolution w/ intrauterine resuscitative measures) Strip Review: positive: Category II - Vaginal Exam Dilation (in cm): 5 Effacement (%): 75 Station: -1 Cervical Position: Anterior (soft) - Labor Progress Note Labor Progress Note/Additional Text: S: Cinthia is comfortable w/ her epidural; she has had minimal rest. She denies ELLIOTT/visual disturbance/any pain. Christiano is present @ the bedside & is supportive O: VS: T: 98.1 HR 98bpm, RR 18 BP 119/73 EFM (FSE) BL 135 + accels, occ late-appearing decels w/ isolated decel w/ honey in 80s, spontaneous return to baseline <60 seconds, non-repetitive; difficult to assess true nature of decelerations secondary to poor tocometry IUPC: placed w/ ease; ongoing leakage of copious CAF; baseline 0mmHg, peak 25mmHg, frequency q 4 min, MVU presently 75 SVE: 5/75/-1, anterior, soft, position LOP O>I A: 27y/o @ 36w2d by first trimester US, IOL for mild PET by BP criteria Normotensive on oral antihypertensive agents, no severe-range BPs since admission s/p effective prostaglandin/mechanical cervical ripening, minimal cervical change w/ Pitocin infusion titrated to a max of 2mU/min infusion GBS negative, AROM x5 hours for CAF, afebrile FHTs cat II, without evidence of hypoxemia Adequate pain control w/ epidural anesthesia malposition P: 1. Once FHTs consistently cat I x30 minutes, resume Pitocin infusion & titrate per protocol to adequacy by MVU 2. Continue ongoing careful monitoring of BP/I&O, intervention as clinically warranted 3. Reassess cervical status 2 hours s/p establishment of adequate labor by MVU, earlier PRN 4. Reviewed implications of malposition & optimal maternal positioning to facilitated rotation & descent 5. Reviewed plan of care w/ pt, partner, RN @ bedside; all in agreement, without concerns; Dr. Mora, DO, updated as to pt's current clinical status
[2017-07-23] MEDS: LABETALOL 100 MG TABLET PO SCH ×2 (16:26→20:48)
[2017-07-23] MEDS ORDERED: LIDOCAINE 1% 50 ML MDV ONE (17:46)
[2017-07-23] MEDS ORDERED: MINERAL OIL LIGHT 10 ML MC ONE (17:47)
[2017-07-23] MEDS ORDERED: OXYTOCIN/SODIUM CHLORIDE 250 ML IV ONE (19:07)
--- NOTE | 2017-07-23 19:18 | DELIVERY NOTE ---
Delivery Note - Labor Labor: positive: Induced by oxytocin (s/p cervical ripening w/ misoprostol x7 buccal doses of 25mcg & Tayla catheter transcervical placement) - Delivery Method Delivery Method: positive: Spontaneous vaginal delivery - Cervical Ripening Method Cervical Ripening Method: positive: Balloon device, Misoprostil - Presentation Presentation: positive: Vertex, DENIS - right occiput anterior - Nuchal Cord Nuchal Cord: positive: Present, Reduced (x1) - Anesthetic Anesthetic Type: - Amniotic Fluid Description Amniotic Fluid Description: positive: Clear - Episiotomy Type Episiotomy Type: positive: None - Laceration Laceration: positive: None - Delivery Outcome Delivery Outcome: positive: Livebirth - : positive: Placed in direct skin contact with mother, Stimulated, Warmed , [place] used Richards sex: positive: Male - Cord Cord: positive: 3 vessels, True knot - Placenta Placenta: positive: Intact, Spontaneous - Estimated Blood Loss Estimated Blood Loss (in cc): 350 - Post Delivery Events Post Delivery Events: positive: No post delivery events - Delivery Comments (Free Text/Narrative) Delivery Comments (Free Text/Narrative): Cinthia Cowan is a 27 y/o [id number] who received care beginning in the first trimester & was dated by a first trimester ultrasound, which was consistent w/ her menstrual dating. Her course was complicated by a hx of anxiety/depression, which were stable during the course of her , and by the development of gestational HTN w/o significant proteinuria beginning in her 31st week of . She received BMZ course & began oral antihypertensive therapy, which required titration to a maximum of 200mg po BID. She presented with increased BP to 160s/100s in her 36th week of & had been having twice weekly antepartum surveillance, which was reassuring. PET labs were stable & negative, and she did not have any notable neurologic signs. She had a SANGITA that demonstrated EFW 81st percentile. A decision was made to induce her labor & she underwent preinduction cervical ripening w/ 7 doses of buccal misoprostol followed by transcervical Custer catheter placement. She then underwent AROM for copious CAF & received an epidural for anesthesia. She received Pitocin infusion for induction of labor. FHTs were monitored electronically t/o & IUPC was placed to facilitate titration of Pitocin. She was 5cm @ 1300 & progressed readily to complete dilatation @ 1745, for a total first stage duration of 4.75 hours. Pt pushed w / spontaneous urge & some direction to viable male in DENIS position over an intact perineum @ 1805, for a total 2nd stage duration of 20 minutes. FHTs monitored electronically & reassuring t/o. Nuchal cord x1 reduced prior to delivery of shoulders/body. vigorous w/ spontaneous, lusty cry. Placed to maternal abdomen for drying/stim. True knot x1 noted in cord. Delayed cord clamping x1 minute, then cord clamped x2 by CNM, cut by FOB. 3VC noted. Apgars 8/9 & weight pending. Active management of the 3rd stage of labor w/ Pitocin in IV fluids, placenta del spontaneously & intact, [place], @ 1812, for a total 3rd stage duration of 7 min. Fundus firm @ U. EBL 350mL. Vagina & perineum inspected & found to be intact. remains [id number] w/ mother, nuzzling @ breast. Mother & stable. No severe-range BPs throughout the course of cervical ripening or labor. Will continue to monitor.
[2017-07-23] MEDS ORDERED: LACTATED RINGERS 1,000 ML IV SCH (20:00)
[2017-07-23] MEDS: DOCUSATE SODIUM 100 MG CAPSULE PO SCH (20:49)
[2017-07-23] MEDS: CELECOXIB 100 MG CAPSULE PO SCH (21:08)
[2017-07-24 05:55] LABS: BASOPHILS # (AUTO) 0.1 10^3/uL (0.0-0.1); BASOPHILS % (AUTO) 0.8 %; EOSINOPHILS # (AUTO) 0.1 10^3/uL (0.0-0.7); EOSINOPHILS % (AUTO) 0.5 %; HGB - HEMOGLOBIN 11.2 g/dL (12.0-16.0); LYMPHOCYTES # (AUTO) 2.1 10^3/uL (1.5-3.5); LYMPHOCYTES % (AUTO) 12.2 %; MEAN CORPUSCULAR HEMOGLOBIN 30.4 pg (27.0-31.0); MEAN CORPUSCULAR HGB CONC 34.5 g/dL (32.0-36.0); MEAN CORPUSCULAR VOLUME 88.2 fL (81.0-99.0); MEAN PLATELET VOLUME 6.6 fL (7.9-10.8); MONOCYTES # (AUTO) 1.2 10^3/uL (0.0-1.0); MONOCYTES % (AUTO) 6.9 %; NEUTROPHILS # (AUTO) 13.7 10^3/uL (1.5-6.6); NEUTROPHILS % (AUTO) 79.6 %; PLT - PLATELET COUNT 224 10^3/uL (130-450); RED BLOOD COUNT 3.69 10^6/uL (4.20-5.40); RED CELL DISTRIBUTION WIDTH 13.5 % (12.0-15.0); WHITE BLOOD COUNT 17.2 x10^3/uL (4.8-10.8)
[2017-07-24 06:10] LABS: CREATININE 0.6 mg/dL (0.4-1.0)
[2017-07-24] MEDS: DOCUSATE SODIUM 100 MG CAPSULE PO SCH ×2 (08:53→20:36)
[2017-07-24] MEDS: LABETALOL 100 MG TABLET PO SCH ×2 (08:53→20:36)
[2017-07-24] MEDS: CELECOXIB 100 MG CAPSULE PO SCH ×2 (08:53→20:36)
--- NOTE | 2017-07-24 14:56 | PROVIDER PROGRESS NOTE ---
Subjective - Prog Note Date Prog Note Date: 07/24/17 Prog Note Time: 14:45 - Subjective Pt reports feeling: Improved Subjective: Cinthia is feeling well. Pain is well-controlled w/o opioid analgesia. She is ambulating & voiding w/o difficulty. No ELLIOTT/vision changes. Minimal lochia rubra. She is well w/o discomfort. She is tolerating po intake. Objective - Vital Signs/Intake & Output Reviewed Vital Signs: Yes Vital Signs: Vital Signs x48h Temp Pulse Resp BP BP Pulse Ox 07/24/17 13:15 36.4 C L 86 16 128/82 H 100 07/24/17 09:00 37.1 C 89 18 134/91 H 99 Intake & Output: Intake & Output 07/21/17 07/22/17 07/23/17 07/24/17 23:59 23:59 23:59 23:59 Intake Total 1805 1125 3356 Output Total 2275 2475 1255 Balance -470 -1350 2101 - Objective General Appearance: positive: No acute distress, Alert Eyes Bilateral: positive: Normal inspection Respiratory: positive: Chest non-tender, No respiratory distress, Breath sounds nml Cardiovascular: positive: Regular rate & rhythm, No murmur Rectal: positive: Non-tender, Other (FF U-1) Skin: positive: Color nml, No rash, Warm, Dry Extremities: positive: Non-tender, Full ROM. negative: Pedal edema, Calf tenderness Neurologic/Psychiatric: positive: Oriented x3, CN's nml (2-12), Motor nml, Sensation nml, Mood/affect nml Comments/Other: Nipples b/l intact & everted; breasts s, nt; colostrum readily expressible perineum intact, no edema/erythema/ecchymosis, minimal lochia rubra - Lab Results Fish Bones: 07/24/17 05:47 07/24/17 05:47 Other Labs: Lab Results x24hrs 07/24/17 07/24/17 Range/Units 05:47 05:47 WBC 17.2 H (4.8-10.8) x10^3/uL RBC 3.69 L (4.20-5.40) 10^6/uL Hgb 11.2 L (12.0-16.0) g/dL Hct 32.5 L (37.0-47.0) % MCV 88.2 (81.0-99.0) fL MCH 30.4 (27.0-31.0) pg MCHC 34.5 (32.0-36.0) g/dL RDW 13.5 (12.0-15.0) % Plt Count 224 (130-450) 10^3/uL MPV 6.6 L (7.9-10.8) fL Neut # 13.7 H (1.5-6.6) 10^3/uL Lymph # 2.1 (1.5-3.5) 10^3/uL [place] # 1.2 H (0.0-1.0) 10^3/uL Eos # 0.1 (0.0-0.7) 10^3/uL Baso # 0.1 (0.0-0.1) 10^3/uL Absolute Nucleated RBC 0.00 x10^3/uL Nucleated RBC % 0.0 /100WBC Creatinine 0.6 (0.4-1.0) mg/dL Estimated GFR (MDRD) 122 (>89) AST 32 (10-42) IU/L Assessment/Plan - Problem List (1) (normal spontaneous vaginal delivery) Impression: A: 27 y/o PPD#1 s/p w/o laceration, s/p IOL for mild PET by BP criteria, normotensive w/o s/sx severe or progressive PET, well, adequate pain control, normal uterine involution P: 1. Continue routine PP care 2. support provided & to continue in ongoing fashion 3. Continue careful BP monitoring 4. Anticipate D/C home PPD #2
[2017-07-24] MEDS: ACETAMINOPHEN 325 MG TABLET PO PRN (16:53)
[2017-07-25] MEDS: ACETAMINOPHEN 325 MG TABLET PO PRN ×3 (04:43→20:57)
[2017-07-25] MEDS: DOCUSATE SODIUM 100 MG CAPSULE PO SCH (09:06)
[2017-07-25] MEDS: CELECOXIB 100 MG CAPSULE PO SCH ×2 (09:06→20:58)
[2017-07-25] MEDS: LABETALOL 100 MG TABLET PO SCH ×2 (09:07→20:58)
--- NOTE | 2017-07-25 16:18 | Discharge Plan ---
Discharge Plan Disposition: 01 Home, Self Care Condition: Good Diet: Regular Activity Restrictions: pelvic rest x6 weeks Shower Restrictions: No Driving Restrictions: No Weight Bearing: Full Weight Instruction Topics: Preeclampsia, Exercises Kegel, Vaginal, Vaginal After, Breastfeed Holds, Breastfeed How To, Breastmilk Expressing, Breastmilk Storage, Childbirth Breast Care, Nutrition No Smoking: If you smoke, Please STOP! Call for help. Follow-up with: Jose Raul Bradford CNM, [place] [Provider Admit Priv/Credential] -
--- NOTE | 2017-07-25 16:22 | DISCHARGE SUMMARY ---
"Discharge Summary Admit Date: 07/21/17 Discharge Date: 07/25/17 Discharging Provider: brett Code Status: Attempt Resuscitation Condition at Discharge: Good Discharge Disposition: 01 Home, Self Care Discharge Facility Name: [facility] - DIAGNOSES Admission Diagnoses: MILD PRE-ECLAMPSIA 36 WEEKS GESTATION PRIMIGRAVIDA Discharge Diagnoses with Status of Each Condition: - HPI History of Present Illness: GERMAN CHE IS A 27 Y/O [id number] WHO WAS ADMITTED FOR PREINDUCTION CERVICAL RIPENING FOR INDUCTION OF LABOR SECONDARY TO MILD PET BY BP CRITERIA. SHE DID NOT HAVE SEVERE-RANGE BPS NECESSITATING IV ANTIHYPERTENSIVES OR MAGNESIUM SULFATE INFUSION DURING HER HOSPITAL STAY & HER PET LABS WERE WNL. SHE RECEIVED 7 BUCCAL DOSES OF MISOPROSTOL 25MCG & THEN UNDERWENT TRANSCERVICAL MODESTA CATHETER PLACEMENT FOR EFFECTIVE CERVICAL RIPENING. SHE RECEIVED AN EPIDURAL FOR ANESTHESIA & HAD FSE & IUPC PLACEMENT TO ENSURE ACCURACY OF MONITORING & APPROPRIATE TITRATION OF PITOCIN INFUSION. FHTS WERE CONSISTENTLY REASSURING, CAT I-II. SHE PROGRESSED W/ PITOCIN INFUSION TO COMPLETE DILATATION & DELIVERED VAGINALLY OVER AN INTACT PERINEUM W/O COMPLICATION. APGARS 8/9, TRUE KNOT IN 3VC. NO EXCESSIVE BLEEDING. NORMOTENSIVE PP ON ORAL ANTIHYPERTENSIVE AGENT. - CONSULTS | PROCEDURES Procedures: PREINDUCTION CERVICAL RIPENING INDUCTION OF LABOR EPIDURAL PLACEMENT - HOSPITAL COURSE Hospital Course: , SHE IS AMBULATING & VOIDING W/O DIFFICULTY. HER PAIN IS WELL- CONTROLLED W/ NON-OPIOID ANALGESIA. SHE IS WELL W/O DISCOMFORT & W/ EXCELLENT LATCH & HAS COPIOUS COLOSTRUM THAT IS READILY EXPRESSIBLE. SHE REPORTS MINIMAL LOCHIA RUBRA. SHE IS PLANNING TO RETURN TO WORK @ 8 WEEKS' PP & HAS A BREAST PUMP @ HOME FOR USE. HER PARTNER, KRANTHI, WILL HAVE UNLIMITED PP LEAVE TO ASSIST HER @ HOME & SHE HAS ADDITIONAL EXCELLENT SOCIAL SUPPORT. SHE IS NOT PLANNING ANOTHER @ THIS TIME & IS PLANNING TO UTILIZE POPS FOR CONTRACEPTION. SHE DENIES ELLIOTT/VISUAL DISTURBANCES/ABDOMINAL DISCOMFORT. SHE IS ABLE TO FULLY ARTICULATE PP WARNING S/SX, INCLUDING PP DEPRESSION S/SX, AND PET S/SX, WELL PP AFTERCARE INSTRUCTIONS. SHE WILL CONTINUE ON HER PRESENT DOSING OF LABETALOL & PLANS TO F/U 07/30 FOR SUPPORT & BP CHECK, THEN @ 3 WEEKS FOR PP EXAM & 8 WEEKS FOR ANNUAL EXAM. SHE IS CLINICALLY STABLE & READY TO LEAVE THE HOSPITAL. - ALLERGIES Allergies/Adverse Reactions: Allergies Allergy/AdvReac Type Severity Reaction Status Date / Time No Known Drug Allergies Allergy Verified 01/31/15 21:24 - MEDICATIONS Home Medications: Ambulatory Orders Medication Instructions Recorded Confirmed Labetalol HCl 100 mg PO BID 07/22/17 07/22/17 Vitamin [Trinatal Rx 1] 1 each PO DAILY 07/22/17 07/22/17 - PHYSICAL EXAM AT DISCHARGE General Appearance: positive: No acute distress, Alert Eyes Bilateral: positive: Normal inspection Respiratory: positive: Chest non-tender, No respiratory distress, Breath sounds nml Cardiovascular: positive: Regular rate & rhythm, No murmur Abdomen: positive: Non-tender, Other (FF U-2) Skin: positive: Color nml, No rash, Warm, Dry Extremities: positive: Non-tender, Full ROM, No pedal edema. negative: Calf tenderness Neurologic/Psychiatric: positive: Oriented x3, CN's nml (2-12), Motor nml, Sensation nml, Mood/affect nml Physical Exam Other/Comments: BREASTS B/L S, NT; NIPPLES B/L INTACT & EVERTED, COLOSTRUM READILY EXPRESSIBLE PERINEUM INTACT W/O ERYTHEMA/EDEMA/ECCHYOMSIS, MINIMAL LOCHIA RUBRA - LABS Result Diagrams: 07/24/17 05:47 07/24/17 05:47 - FOLLOW UP Follow Up: X1 WEEK IN OUTPT CLINIC"
[2017-07-25 20:40] VITALS: BP 134/80
--- NOTE | 2017-07-25 21:20 | Labor Flowsheet ---
Labor Flowsheet Datetime Report Generated by CPN: 07/25/2017 21:19 Datetime: 07/25/2017 20:05 VITAL SIGNS NBP Sys/Debora/Mean (mmHg): 134 : 80 : 91 Pulse: 71 Datetime: 07/24/2017 08:30 MATERNAL ASSESSMENT Level of Consciousness: Fully Conscious DTR's/Clonus: DTRs 1+; No Clonus Headache: Denies Breath Sounds, Left: Clear and Equal Breath Sounds, Right: Clear and Equal Nausea/Vomiting: Denies RUQ Epigastric Pain: Denies Datetime: 07/23/2017 18:31 Stage of : Recovery Datetime: 07/23/2017 18:08 STAGE 2 Pushing: Urge to Push Pushing Position: Pushing with Contractions Pushing Progress: Descent with Pushing Stage 2 Comments: started pushing at 1753 Datetime: 07/23/2017 18:00 SpO2 (%): 100 UTERINE ACTIVITY Monitor Mode: Internal Frequency (min): 3 Quality: Strong Duration (sec): 70-90 Pattern: Normal: <= 5 Contractions in 10 Minutes Resting Tone (Palpate): Relaxed Resting Tone IUP (mmHg): 40 Intensity IUP (mmHg): 85-100 [place] Units (mmHg): 200 Contraction Comments: pushing at 1753 ASSESSMENT A Monitor Mode: Internal Scalp Electrode FHR Baseline Rate : 130 Variability: Moderate 6-25 bpm Accelerations: 15X15 Decelerations: None Category: Category I LaborFlag: Labor Datetime: 07/23/2017 17:53 Pain Coping: Breathing Through Contractions Pain Assessment Comments: pushing Datetime: 07/23/2017 17:51 VAGINAL EXAM Dilatation (cm): 10.0 Effacement (%): 100 Station: 3 Exam by: gera Datetime: 07/23/2017 17:50 Vaginal Bleeding: Normal Show Cervix, Consistency: Soft Cervix, Position: Anterior Datetime: 07/23/2017 17:49 COMMUNICATION Communication: Provider at Bedside Communication Comments: gera [place] cnm Datetime: 07/23/2017 17:45 Oxygen Amount (LPM): 10 Oxygen Method: Non-Rebreather Datetime: 07/23/2017 17:23 Patient Position/Activity: Left Extreme Hygiene: Tara Care; Peripad Changed Datetime: 07/23/2017 17:18 Patient Care Comments: 150 Datetime: 07/23/2017 17:00 Notification Reason: Status Update; Status; Labor Status; Pain Datetime: 07/23/2017 16:56 Pain Type: Pressure Datetime: 07/23/2017 16:22 MEDICATIONS Pitocin (milliunits): Increased to @ 6 Datetime: 07/23/2017 16:20 PATIENT CARE IV/Blood Work: New IV Bag Hung Datetime: 07/23/2017 15:46 Respirations: 17 Temperature (C): 37.4 Vital Sign Comments: pt just awoke. will recheck temp Datetime: 07/23/2017 13:01 Comments: minimal to mod variabilty Datetime: 07/23/2017 12:47 Monitor Interventions for UA: IUPC Inserted Datetime: 07/23/2017 12:45 Position 'A': Left Occipital Posterior Datetime: 07/23/2017 10:39 Medication Comments: Pitocin verified with RN Jean Paul Datetime: 07/23/2017 10:21 Pitocin Checklist: At Least 1 Acceleration of 15 bpm x 15 Seconds in 30 Minutes or Adequate Variabi lity; No More than 1 Late Deceleration Occurred in Past 30 Minutes; No More than 2 Variable Decelerat ions > 60 Seconds in Duration and decreasing >60 bpm in 30 minutes; No More than 5 Uterine Contractio ns in 10 Minutes for any 20 Minute Interval; Uterus Palpates Soft between Contractions Datetime: 07/23/2017 10:14 FHR Baseline Changes: No Baseline Change Datetime: 07/23/2017 10:03 I/O Interventions: Lee Cath Inserted Datetime: 07/23/2017 08:57 Actions for Decelerations: Side to Side Datetime: 07/23/2017 08:14 Monitor Interventions for FHR: Ultrasound Adjusted Datetime: 07/23/2017 08:12 Membrane Status: Ruptured Membranes Rupture Method: Artificial Amniotic Fluid Color: Clear Amniotic Fluid Amount: Large Datetime: 07/23/2017 07:45 Anesthesia Level Check: T10- Umbilicus Datetime: 07/23/2017 07:17 Epidural Procedure Other: Pump Started Datetime: 07/23/2017 07:11 PROCEDURE TIME OUT Procedure Verify: Correct Patient Identity; Accurate Procedure Consent Form; Agreement on Procedure to be Done; Correct Patient Position ANESTHESIA Anesthesia Plans: Epidural Epidural Positioning: Sitting Epidural Procedure: Cath Placed Datetime: 07/23/2017 06:58 Provider Notified (Name): Sis Stephenie, SERIALS LIBRARIAN Datetime: 07/23/2017 06:33 PAIN Pain Scale: 6 Pain Presence: Intermittent Pain Location: Abdomen Datetime: 07/23/2017 06:30 TEACHING Instructional Method: Verbal Plan of Care: Induction Unit Routine: Medications Pain Management: Epidural; PRN Medications; Pain Scale/Goals; Comfort Measures Datetime: 07/23/2017 04:58 Maternal Comments: pt refusing zofran at this time Datetime: 07/23/2017 04:14 Analgesics/Sedatives: Fentanyl (mcg) @ Datetime: 07/23/2017 04:00 Pain Relief Measures: Pain Medication Given; Comfort Measures Datetime: 07/22/2017 21:56 Labor/Induction: Induction Datetime: 07/22/2017 21:35 Cervical Ripening Agents Other: 25 mcg Datetime: 07/22/2017 19:02 Comfort Measures: Breathing/Relaxation; Hot/Cold Pack; Family Support Datetime: 07/22/2017 16:36 Vaginal Exam Comments: 0 to +1 station, fingertip Datetime: 07/22/2017 15:08 Cervical Ripening Agents: Cytotec @ 25 Datetime: 07/22/2017 09:09 Provider Reviewed Strip: Yes Datetime: 07/22/2017 02:06 Temperature Route: Oral
== END 2017-07-25 21:15 | disposition home or self-care (01) | DRG 775 ==
LOC: EDSTATUS 07-21 07:30 → FBP 07-21 07:35
PROVIDERS: ADMIT Registered Nurse; ATTEND Registered Nurse
PROC: 10E0XZZ Delivery of Products of Conception, External Approach (ICD-10-PCS; principal; 2017-07-23)
PROC: 4A1H7CZ Monitoring of Products of Conception, Cardiac Rate, Via Natural or Artificial Opening (ICD-10-PCS; 2017-07-23)
PROC: 0U7C7ZZ Dilation of Cervix, Via Natural or Artificial Opening (ICD-10-PCS; 2017-07-23)
PROC: 10H07YZ Insertion of Other Device into Products of Conception, Via Natural or Artificial Opening (ICD-10-PCS; 2017-07-23)
DX: O14.04 Mild to moderate pre-eclampsia, complicating childbirth (principal); Z3A.36 36 weeks gestation of pregnancy; O69.2XX0 Labor and delivery complicated by other cord entanglement, with compression, not applicable or unspecified; Z37.0 Single live birth
CPT/HCPCS: 36415; 82565; 82570; 83615; 84156; 84450; 84550; 85025; 96361; 96372; 96374

== ENCOUNTER 2017-07-28 12:41 | Outpatient (CLI) | payer MEDICAID ==
[2017-07-28 13:19] LABS: HGB - HEMOGLOBIN 13.2 g/dL (12.0-16.0); MEAN CORPUSCULAR HEMOGLOBIN 30.7 pg (27.0-31.0); MEAN CORPUSCULAR HGB CONC 34.9 g/dL (32.0-36.0); MEAN CORPUSCULAR VOLUME 87.8 fL (81.0-99.0); MEAN PLATELET VOLUME 6.5 fL (7.9-10.8); RED BLOOD COUNT 4.31 10^6/uL (4.20-5.40); RED CELL DISTRIBUTION WIDTH 13.1 % (12.0-15.0)
[2017-07-28 13:45] LABS: ALBUMIN 3.7 g/dL (3.2-5.5); ALBUMIN/GLOBULIN RATIO 0.9 (1.0-2.2); BILIRUBIN,TOTAL 0.3 mg/dL (0.2-1.0); CALCIUM 11.4 mg/dL (8.5-10.3); CREATININE 0.9 mg/dL (0.4-1.0); TOTAL PROTEIN 7.7 g/dL (6.7-8.2)
[2017-07-28 13:46] LABS: PROTEIN/CREATININE RATIO,URINE 1.2 (<=0.2)
== END 2017-07-28 12:42 | disposition home or self-care (01) ==
LOC: LAB 12:41
PROVIDERS: ATTEND Registered Nurse
DX: Z01.31 Encounter for examination of blood pressure with abnormal findings (principal)
CPT/HCPCS: 36415; 80053; 82570; 84156

== ENCOUNTER 2017-09-15 14:38 | Outpatient (CLI) | payer MEDICAID | END 2017-09-15 14:39 | disposition home or self-care (01) | LOC: LAB.N 14:38 | PROVIDERS: ATTEND Registered Nurse | DX: Z01.419 Encounter for gynecological examination (general) (routine) without abnormal findings (principal) | CPT/HCPCS: 36415; 84443 ==

== ENCOUNTER 2019-08-09 09:26 | Outpatient (CLI) | payer MEDICAID ==
[2019-08-09 11:57] LABS: BASOPHILS # (AUTO) 0.1 10^3/uL (0.0-0.1); BASOPHILS % (AUTO) 0.8 %; EOSINOPHILS # (AUTO) 0.3 10^3/uL (0.0-0.7); HGB - HEMOGLOBIN 15.9 g/dL (12.0-16.0); LYMPHOCYTES # (AUTO) 1.6 10^3/uL (1.5-3.5); LYMPHOCYTES % (AUTO) 19.1 %; MEAN CORPUSCULAR HEMOGLOBIN 29.6 pg (27.0-31.0); MEAN CORPUSCULAR HGB CONC 33.6 g/dL (32.0-36.0); MEAN CORPUSCULAR VOLUME 88.1 fL (81.0-99.0); MEAN PLATELET VOLUME 10.2 fL (7.9-10.8); MONOCYTES # (AUTO) 0.4 10^3/uL (0.0-1.0); MONOCYTES % (AUTO) 4.7 %; NEUTROPHILS # (AUTO) 6.2 10^3/uL (1.5-6.6); PLT - PLATELET COUNT 294 10^3/uL (130-450); RED BLOOD COUNT 5.37 10^6/uL (4.20-5.40); RED CELL DISTRIBUTION WIDTH 13.4 % (12.0-15.0); WHITE BLOOD COUNT 8.6 x10^3/uL (4.8-10.8)
[2019-08-09 12:41] LABS: ALBUMIN 4.7 g/dL (3.2-5.5); ALBUMIN/GLOBULIN RATIO 1.3 (1.0-2.2); ALKALINE PHOSPHATASE 40 IU/L (42-121); ALT ALANINE AMINOTRANSFERASE 11 IU/L (10-60); AST ASPARTATE AMINOTRANSFERASE 24 IU/L (10-42); BILIRUBIN,TOTAL 0.8 mg/dL (0.2-1.0); BUN - BLOOD UREA NITROGEN 12 mg/dL (6-20); CALCIUM 9.7 mg/dL (8.5-10.3); CARBON DIOXIDE - CO2 25 mmol/L (21-32); CHLORIDE 106 mmol/L (101-111); CHOL/HDL RATIO 5.4 (<4.4); CHOLESTEROL 194 mg/dL; CREATININE 0.9 mg/dL (0.4-1.0); GLUCOSE 98 mg/dL (70-100); HDL CHOLESTEROL 36 mg/dL; LDL CHOLESTEROL,CALCULATED 134 mg/dL; LDL/HDL RATIO 3.7 (<4.4); SODIUM 139 mmol/L (135-145); TOTAL PROTEIN 8.2 g/dL (6.7-8.2); VLDL CHOLESTEROL 24 mg/dL
[2019-08-09 12:46] LABS: HEMOGLOBIN A1C 0.52 g/dL; HEMOGLOBIN A1C % 5.1 % (4.6-6.2)
[2019-08-09 13:53] LABS: FREE T4 (FREE THYROXINE) 0.77 ng/dL (0.58-1.64)
== END 2019-08-09 23:59 | disposition home or self-care (01) ==
LOC: LAB.N 09:26
PROVIDERS: ATTEND Family Medicine
DX: Z00.00 Encounter for general adult medical examination without abnormal findings (principal)
CPT/HCPCS: 36415; 80053; 80061; 83036; 83721; 84439; 84443; 85025

== ENCOUNTER 2019-10-11 08:00 | Outpatient (CLI) | payer MEDICAID ==
[2019-10-11 14:11] LABS: T4 (THYROXINE) 6.36 ug/dL (6.09-12.23)
[2019-10-11 14:15] LABS: FREE T3 3.64 pg/mL (2.5-3.9)
[2019-10-11 14:16] LABS: FREE T4 (FREE THYROXINE) 0.68 ng/dL (0.58-1.64)
== END 2019-10-11 23:59 | disposition home or self-care (01) ==
LOC: LAB.WCP 08:00
PROVIDERS: ATTEND Family Medicine
DX: R94.6 Abnormal results of thyroid function studies (principal)
CPT/HCPCS: 36415; 84436; 84439; 84481; 86800

== ENCOUNTER 2020-03-20 07:00 | Outpatient (CLI) | payer MEDICAID | END 2020-03-20 23:59 | disposition home or self-care (01) | LOC: LAB.R 07:00 | PROVIDERS: ATTEND Family Medicine | DX: R30.0 Dysuria (principal) | CPT/HCPCS: 87086 ==

== ENCOUNTER 2020-10-10 08:00 | Outpatient (CLI) | payer MEDICAID ==
[2020-10-10 18:18] LABS: THYROID STIMULATING HORMONE 7.49 uIU/mL (0.34-5.60)
[2020-10-10 18:50] LABS: FREE T4 (FREE THYROXINE) 0.76 ng/dL (0.58-1.64)
== END 2020-10-10 23:59 | disposition home or self-care (01) ==
LOC: LAB.WCP 08:00
PROVIDERS: ATTEND Nurse Practitioner Family
DX: R94.6 Abnormal results of thyroid function studies (principal)
CPT/HCPCS: 36415; 84439; 84443

== ENCOUNTER 2021-03-07 08:00 | Outpatient (CLI) | payer MEDICAID ==
[2021-03-07 16:35] LABS: BILIRUBIN,URINE NEGATIVE (NEGATIVE); GLUCOSE, URINE (UA) NEGATIVE (NEGATIVE); KETONES,URINE (UA) NEGATIVE (NEGATIVE); LEUKOCYTE ESTERASE, URINE TRACE (NEGATIVE); NITRITE,URINE NEGATIVE (NEGATIVE); OCCULT BLOOD,URINE NEGATIVE (NEGATIVE); PROTEIN,URINE NEGATIVE (NEGATIVE); UROBILINOGEN,URINE 0.2 (NORMAL) E.U./dL (NORMAL)
[2021-03-07 16:44] LABS: CLARITY,URINE HAZY (CLEAR)
[2021-03-07 17:00] LABS: BACTERIA,URINE Rare /HPF (None Seen); RBC,URINE 0-5 /HPF (0-5); SQUAMOUS EPITHELIAL CELL,UR MOD Squamous (<= Few); WBC,URINE 0-3 /HPF (0-5)
== END 2021-03-07 23:59 | disposition home or self-care (01) ==
LOC: LAB 08:00
PROVIDERS: ATTEND Obstetrics & Gynecology
DX: Z32.01 Encounter for pregnancy test, result positive (principal)
CPT/HCPCS: 81001; 87086

== ENCOUNTER 2021-03-14 16:19 | Outpatient (CLI) | payer MEDICAID ==
[2021-03-14 17:16] LABS: BASOPHILS # (AUTO) 0.1 10^3/uL (0.0-0.1); BASOPHILS % (AUTO) 0.6 %; EOSINOPHILS # (AUTO) 0.2 10^3/uL (0.0-0.7); EOSINOPHILS % (AUTO) 1.8 %; HCT - HEMATOCRIT 42.6 % (37.0-47.0); HGB - HEMOGLOBIN 14.6 g/dL (12.0-16.0); LYMPHOCYTES % (AUTO) 17.9 %; MEAN CORPUSCULAR HEMOGLOBIN 29.7 pg (27.0-31.0); MEAN CORPUSCULAR HGB CONC 34.3 g/dL (32.0-36.0); MEAN CORPUSCULAR VOLUME 86.6 fL (81.0-99.0); MONOCYTES # (AUTO) 0.5 10^3/uL (0.0-1.0); MONOCYTES % (AUTO) 4.3 %; NEUTROPHILS # (AUTO) 8.6 10^3/uL (1.5-6.6); PLT - PLATELET COUNT 283 10^3/uL (130-450); RED BLOOD COUNT 4.92 10^6/uL (4.20-5.40); RED CELL DISTRIBUTION WIDTH 13.1 % (12.0-15.0); WHITE BLOOD COUNT 11.4 x10^3/uL (4.8-10.8)
[2021-03-14 17:46] LABS: T4 (THYROXINE) 8.52 ug/dL (6.09-12.23)
[2021-03-14 17:50] LABS: THYROID STIMULATING HORMONE 8.53 uIU/mL (0.34-5.60)
--- NOTE | 2021-03-14 18:12 | Ultrasound Report ---
PROCEDURE: OB First Trimester INDICATIONS: + PREG TEST OUTSIDE/PRIOR DATING DATA: Last menstrual period (LMP): 01/16/2021. LMP-based estimated date of delivery (MARLA): 10/23/2021. First dating scan (date and location): 03/14/2021. Estimated date of delivery (MARLA) from first dating scan: 10/23/2021. The below data below was generated using the last menstrual period MARLA of 10/23/2021 TECHNIQUE: Real-time scanning was performed of the fetus and maternal pelvic organs, with image documentation. COMPARISON: None FINDINGS: Embryo: Single living intrauterine gestation with estimated sonographic gestational age of approxima tely 8 weeks and 1 day based off crown-rump length measurement of 1.7 cm. Gestational sac is slightly irregular in appearance. Yolk sac is visualized. Small anterior perigestational hemorrhage measuring 1.0 x 0.8 x 0.8 cm Heart rate: 173 bpm Measurement variability in dating: +/- 4 weeks by LMP, +/- 7 days by mean sac diameter (use before 6 weeks gestation if crown-rump length not able to be measured), +/- 5 days by crown-rump length (6-12 weeks gestation). Maternal organs: Ovaries demonstrate right corpus luteal cyst measuring 1.8 x 1.7 x 2.1 cm. Materna l cervix appears visibly adequate and closed. IMPRESSION: Single living intrauterine gestation with estimated sonographic gestational age of approximately 8 we eks and 1 day based off crown-rump length measurement. Estimated date of delivery is approximately 10/23/2021 which is concordant with last menstrual period MARLA of 10/23/2021. Small perigestational hemorrhage with slight irregular contour of the gestational sac. Recommend cont inued clinical surveillance. Otherwise, recommend routine second trimester anatomic screening kevin matson. Reviewed by: Luis Enrique Chung MD on 03/14/2021 6:11 PM PDT Approved by: Luis Enrique Chung MD on 03/14/2021 6:11 PM PDT Station ID: [id number]
== END 2021-03-14 16:20 | disposition home or self-care (01) ==
LOC: DI 16:19
PROVIDERS: ATTEND Obstetrics & Gynecology
DX: O20.8 Other hemorrhage in early pregnancy (principal); Z3A.08 8 weeks gestation of pregnancy; Z36.89 Encounter for other specified antenatal screening; R30.0 Dysuria; O99.891 Other specified diseases and conditions complicating pregnancy
CPT/HCPCS: 36415; 84436; 84443; 85025; 86592; 86762; 86787; 86803; 86850; 86900; 86901; 87086; 87340; 87389

== ENCOUNTER 2021-03-28 08:00 | Outpatient (CLI) | payer MEDICAID ==
[2021-03-28 13:03] LABS: BILIRUBIN,URINE NEGATIVE (NEGATIVE); GLUCOSE, URINE (UA) NEGATIVE (NEGATIVE); KETONES,URINE (UA) NEGATIVE (NEGATIVE); LEUKOCYTE ESTERASE, URINE SMALL (NEGATIVE); NITRITE,URINE NEGATIVE (NEGATIVE); OCCULT BLOOD,URINE NEGATIVE (NEGATIVE); PH,URINE 6.5 PH (5.0-7.5); PROTEIN,URINE TRACE mg/dL (NEGATIVE); UROBILINOGEN,URINE 0.2 (NORMAL) E.U./dL (NORMAL)
[2021-03-28 13:12] LABS: BACTERIA,URINE Few /HPF (None Seen); CLARITY,URINE CLEAR (CLEAR); RBC,URINE 0-5 /HPF (0-5); SQUAMOUS EPITHELIAL CELL,UR MANY Squamous (<= Few); WBC,URINE 0-3 /HPF (0-5)
== END 2021-03-28 23:59 | disposition home or self-care (01) ==
LOC: LAB.WC 08:00
PROVIDERS: ATTEND Obstetrics & Gynecology
DX: Z34.90 Encounter for supervision of normal pregnancy, unspecified, unspecified trimester (principal); Z36.89 Encounter for other specified antenatal screening
CPT/HCPCS: 81001; 87086

== ENCOUNTER 2021-04-22 15:32 | Outpatient (CLI) | payer MEDICAID ==
[2021-04-22 16:13] LABS: THYROID STIMULATING HORMONE 7.03 uIU/mL (0.34-5.60)
[2021-04-22 16:56] LABS: FREE T4 (FREE THYROXINE) 0.82 ng/dL (0.58-1.64)
== END 2021-04-22 15:33 | disposition home or self-care (01) ==
LOC: LAB 15:32
PROVIDERS: ATTEND Obstetrics & Gynecology
DX: O99.891 Other specified diseases and conditions complicating pregnancy (principal); R94.6 Abnormal results of thyroid function studies
CPT/HCPCS: 36415; 84439; 84443

== ENCOUNTER 2021-05-12 08:00 | Outpatient (CLI) | payer MEDICAID ==
[2021-05-12 18:23] LABS: THYROID STIMULATING HORMONE 2.49 uIU/mL (0.34-5.60)
== END 2021-05-12 23:59 | disposition home or self-care (01) ==
LOC: LAB.WCP 08:00
PROVIDERS: ATTEND Obstetrics & Gynecology
DX: O99.891 Other specified diseases and conditions complicating pregnancy (principal); R94.6 Abnormal results of thyroid function studies
CPT/HCPCS: 36415; 84443

== ENCOUNTER 2021-06-13 15:16 | Outpatient (CLI) | payer MEDICAID ==
--- NOTE | 2021-06-13 21:12 | Ultrasound Report ---
PROCEDURE: OB Detailed Eval INDICATIONS: SUPERVISION OF OUTSIDE/PRIOR DATING DATA: Last menstrual period (LMP): 01/16/2021. LMP-based estimated date of delivery (MARLA): 10/23/2021. First dating scan (date and location): 03/14/2021. Estimated date of delivery (MARLA) from first dating scan: 10/23/2021. TECHNIQUE: Real-time scanning was performed of the fetus, with image documentation and biometric measurements. COMPARISON: 03/14/2021. FINDINGS: General: A single living intrauterine gestation is present. Presentation: Breech Placenta: Placental position is anterior, without previa. Amniotic fluid index: 16.3 cm, normal for gestational age. heart rate: 150 beats per minute. Maternal cervical canal: 5.0 cm long; normal length is 2.5 cm or more. biometrics: Biparietal diameter: 4.8 cm, 20 weeks, 4 days Head circumference: 18.2 cm, 20 weeks, 4 days Abdominal circumference: 17.2 cm, 22 weeks, 1 day Femur length: 3.6 cm, 21 weeks, 3 days Estimated gestational age from initial scan: 21 weeks, 1 day. Composite gestational age from present scan: 21 weeks, 0 day Estimated weight and percentile: 440 g, 72%. Measurement variability in biometric dating: +/- 10 days from 12-20 weeks gestation, +/- 2 weeks from 20-30 weeks gestation, +/- 3 weeks at 30 weeks gestation or later. Anatomic survey: Neuro: Ventricles are normal at less than 10 mm. Cisterna magna is normal at 3-11 mm. Cerebellum i s normal in size and morphology. Nuchal skin fold: Normal at less than 6 mm between 14 and 20 weeks gestational age. Face: Nose and lips, facial profile are normal. Spine: No evidence for spina bifida. Heart: 4-chambered heart is present, with normal right ventricular outflow tract. Left ventricular o utflow tract is not well seen. Diaphragm: Diaphragm is intact. Stomach: Left-sided stomach is present. Kidneys: No hydronephrosis. Normal is less than 5 mm in 2nd trimester, less than 7 mm in 3rd trimester. Cord: 3 vessel cord has orthotopic insertion. Bladder: Normal in size. Extremities: All 4 extremities are visualized. Placental venous macario is seen measures 3.7 x 1.4 x 3.4 cm in size. Right-sided corpus luteum measures 1.2 cm in size is seen. IMPRESSION: 1. Single live intrauterine with fetus in breech presentation. heart rate is 150 bpm. Normal amount of amniotic fluid. Normal growth. Estimated weight is at 72%. 2. Left ventricular outflow track is not well seen on this study. Rest of the anatomic survey i s within normal limits. Reviewed by: Artie Bryant MD on 06/13/2021 9:11 PM PST Approved by: Artie Bryant MD on 06/13/2021 9:11 PM PST Station ID: [id number]
== END 2021-06-13 15:17 | disposition home or self-care (01) ==
LOC: DI 15:16
PROVIDERS: ATTEND Obstetrics & Gynecology
DX: Z34.92 Encounter for supervision of normal pregnancy, unspecified, second trimester (principal); Z3A.21 21 weeks gestation of pregnancy; Z36.89 Encounter for other specified antenatal screening

== ENCOUNTER 2021-07-10 14:18 | Outpatient (CLI) | payer MEDICAID ==
--- NOTE | 2021-07-10 16:57 | Ultrasound Report ---
PROCEDURE: OB F/U or Repeat INDICATIONS: SUPERVISION OF OUTSIDE/PRIOR DATING DATA: Last menstrual period (LMP): 01/16/2021. LMP-based estimated date of delivery (MARLA): 10/23/2021. First dating scan (date and location): 03/14/2021. Estimated date of delivery (MARLA) from first dating scan: 10/23/2021. The below data below was generated using the MARLA of 10/23/2021. TECHNIQUE: Real-time scanning was performed of the fetus, with image documentation and biometric measurements. Endovaginal scanning: Not performed. COMPARISON: None. FINDINGS: General: A single living intrauterine gestation is present. Presentation: Complete Placenta: Placental position is anterior, without previa. Amniotic fluid index: 20.1 cm, normal for gestational age. Single deepest vertical fluid pocket: 6.8 cm heart rate: 145 beats per minute. Maternal cervical canal: 5.2 cm long; normal length is 2.5 cm or more. Estimated gestational age from initial scan: 25 weeks 0 days Other: 4 chambered view of the heart as well as right and left ventricular outflow tracts appear nor mal. IMPRESSION: 1.Single live intrauterine . 2.Right and left ventricular outflow tracts and four-chamber heart view are within normal limits. Reviewed by: Jai Calvo MD on 07/10/2021 4:56 PM PST Approved by: Jai Calvo MD on 07/10/2021 4:56 PM PST Station ID: [id number]
== END 2021-07-10 14:19 | disposition home or self-care (01) ==
LOC: DI 14:18
PROVIDERS: ATTEND Obstetrics & Gynecology
DX: Z34.92 Encounter for supervision of normal pregnancy, unspecified, second trimester (principal)

== ENCOUNTER 2021-08-07 11:59 | Outpatient (CLI) | payer MEDICAID ==
[2021-08-07 13:13] LABS: MEAN CORPUSCULAR HEMOGLOBIN 31.7 pg (27.0-31.0); MEAN CORPUSCULAR HGB CONC 35.3 g/dL (32.0-36.0); MEAN CORPUSCULAR VOLUME 89.9 fL (81.0-99.0); MEAN PLATELET VOLUME 8.9 fL (7.9-10.8); RED BLOOD COUNT 3.78 10^6/uL (4.20-5.40); RED CELL DISTRIBUTION WIDTH 13.3 % (12.0-15.0)
[2021-08-07 13:42] LABS: THYROID STIMULATING HORMONE 2.44 uIU/mL (0.34-5.60)
[2021-08-07 13:44] LABS: FREE T4 (FREE THYROXINE) 0.79 ng/dL (0.58-1.64)
== END 2021-08-07 12:00 | disposition home or self-care (01) ==
LOC: LAB 11:59
PROVIDERS: ATTEND Obstetrics & Gynecology
DX: O09.90 Supervision of high risk pregnancy, unspecified, unspecified trimester (principal); O99.891 Other specified diseases and conditions complicating pregnancy; R94.6 Abnormal results of thyroid function studies
CPT/HCPCS: 36415; 82950; 84439; 84443; 85027

== ENCOUNTER 2021-08-13 13:50 | Outpatient (CLI) | payer MEDICAID ==
[2021-08-13 14:05] LABS: HGB - HEMOGLOBIN 12.4 g/dL (12.0-16.0); MEAN CORPUSCULAR HEMOGLOBIN 31.7 pg (27.0-31.0); MEAN CORPUSCULAR HGB CONC 35.4 g/dL (32.0-36.0); MEAN CORPUSCULAR VOLUME 89.5 fL (81.0-99.0); MEAN PLATELET VOLUME 8.6 fL (7.9-10.8); RED BLOOD COUNT 3.91 10^6/uL (4.20-5.40); RED CELL DISTRIBUTION WIDTH 13.4 % (12.0-15.0)
[2021-08-13 14:17] LABS: ALBUMIN 3.5 g/dL (3.2-5.5); ALBUMIN/GLOBULIN RATIO 0.9 (1.0-2.2); BILIRUBIN,TOTAL 0.2 mg/dL (0.2-1.0); CALCIUM 9.4 mg/dL (8.5-10.3); CREATININE 0.9 mg/dL (0.4-1.0); POTASSIUM 3.5 mmol/L (3.5-5.0); TOTAL PROTEIN 7.6 g/dL (6.7-8.2)
[2021-08-13 14:26] LABS: CREATININE,URINE 168.4 mg/dL; PROTEIN/CREATININE RATIO,URINE 0.2 (<=0.2)
== END 2021-08-13 13:51 | disposition home or self-care (01) ==
LOC: LAB 13:50
PROVIDERS: ATTEND Obstetrics & Gynecology
DX: O13.3 Gestational [pregnancy-induced] hypertension without significant proteinuria, third trimester (principal)
CPT/HCPCS: 36415; 80053; 82043; 82570; 84156; 85027

== ENCOUNTER 2021-09-10 14:17 | Outpatient (CLI) | payer MEDICAID ==
[2021-09-10 14:52] LABS: BASOPHILS # (AUTO) 0.1 10^3/uL (0.0-0.1); BASOPHILS % (AUTO) 0.4 %; EOSINOPHILS # (AUTO) 0.1 10^3/uL (0.0-0.7); EOSINOPHILS % (AUTO) 1.3 %; HCT - HEMATOCRIT 36.6 % (37.0-47.0); HGB - HEMOGLOBIN 12.5 g/dL (12.0-16.0); LYMPHOCYTES # (AUTO) 1.7 10^3/uL (1.5-3.5); LYMPHOCYTES % (AUTO) 15.3 %; MEAN CORPUSCULAR HEMOGLOBIN 30.8 pg (27.0-31.0); MEAN CORPUSCULAR HGB CONC 34.2 g/dL (32.0-36.0); MEAN CORPUSCULAR VOLUME 90.1 fL (81.0-99.0); MEAN PLATELET VOLUME 8.7 fL (7.9-10.8); MONOCYTES # (AUTO) 0.6 10^3/uL (0.0-1.0); MONOCYTES % (AUTO) 5.1 %; NEUTROPHILS # (AUTO) 8.6 10^3/uL (1.5-6.6); NEUTROPHILS % (AUTO) 77.2 %; PLT - PLATELET COUNT 228 10^3/uL (130-450); RED BLOOD COUNT 4.06 10^6/uL (4.20-5.40); WHITE BLOOD COUNT 11.1 x10^3/uL (4.8-10.8)
[2021-09-10 15:06] LABS: ALBUMIN 3.2 g/dL (3.2-5.5); ALBUMIN/GLOBULIN RATIO 0.8 (1.0-2.2); BILIRUBIN,TOTAL 0.3 mg/dL (0.2-1.0); CALCIUM 9.8 mg/dL (8.5-10.3); CREATININE 0.8 mg/dL (0.4-1.0); POTASSIUM 3.8 mmol/L (3.5-5.0); TOTAL PROTEIN 7.4 g/dL (6.7-8.2)
[2021-09-10 15:09] LABS: CREATININE,URINE 117.3 mg/dL; PROTEIN/CREATININE RATIO,URINE 0.3 (<=0.2)
[2021-09-10 15:30] VITALS: BP 130/83
--- NOTE | 2021-09-19 16:50 | PROVIDER PROGRESS NOTE ---
- HPI Chief Complaint: Hypertension/PIH Current : Current EDU 10/23/21 Gestation 33 Weeks and 6 Days 2 Para 1 Vital Signs Temperature 99.0 F 09/10/21 14:49 Temperature 99.0 F 09/10/21 14:49 Heart Rate 102 H 09/10/21 14:50 Respiratory Rate 18 09/10/21 14:50 Blood Pressure 130/83 H 09/10/21 15:30 O2 Saturation 99 09/10/21 14:50 - Procedures OB Procedure Performed: NST NST Procedure: NST Procedure Start Date 09/10/21 Start Time 14:25 Stop Time 15:40 Vibroacoustic Stimulation Used No Patient States Movement Yes EFM 135 mod jermaine 15x15 accels no decels TOCO: quiet Service Date of procedure: 09/10/21 Procedure Details: Patient is a 31 yo at 33+6 wga here for assessment of worsening gestational hypertension vs pre-eclampsia Patient was seen in clinic today and was noted to have consistently elevated blood pressures. There has been a consistent rise since early and no recent labs or assessment. She also has hypothyroidism and needs a repeat TSH, She was sent over from clinic for evaluation for pre-eclampsia. No ELLIOTT/vision change/RUQ pain. No LOF/VB/CTX. Endorses FM. PNC: LMP: 01/16/2021 MARLA by LMP: 10/23/2021 US Date 03/14/2021, US Age 8 weeks 1 day, MARLA by ultrasound: 10/23/2021 Final MARLA: 10/23/2021 by LMP consistent with 8 week ultrasound GHTN: on ASA 81 mg -Consistently elevated BP in mild range. No symptoms. PIH labs Done 08/13 normal. -Warning signs reviewed -Plan for NST/BPP at 32 weeks -Plan for induction of labor at 37 weeks. Patient will discuss with Dr. Rashid next visit. Hypothyroidism: TSH now 2.49, improved from 7.49 on levothyroxine 50 mcg daily 08/07/21 TSH 2.44 Plan to repeat TSH after next visit. O pos/Rubella : IMMUNE VZV: IMMUNE Genetic testing: Discussed and declined. Confirmed declination FAS: EFW 74%ile, CL 5.0 cm. 3VC, anterior, FAS wnl, need fu RVOT. Placental macario. -OB FU US , RVOT cleared and no mention of placental lakes Glucola: 131 TDAP: 07/31/2021 Influenza : given 03/27/2021 Covid : Pfizer 11/30/2020 - 12/21/2020, 07/11/21 GBS & GC/CT at 36 weeks HSV: Denies Breast pump Rx given 07/15 MOD:Anticipate pp contraception:Likely OCPs. Pap 03/24/2021: Normal ROS: As per HPI, otherwise remaining systems are negative VS: 99 102 144/96 18 99 GEN: NAD HEAD: NCAT EYES: No scleral icterus or conjunctival injection CV: RRR RESP: CTAB, normal effort ABD: gravid, S&NT/ND PSYCH: appropriate affect NEURO: alert and oriented, normal gait and coordination EXT: WWP CBC wnl CMP wnl P:C 0.3 A/P: Patient is a 31 yo at 33+6 wga here for assessment of worsening gestational hypertension vs pre-eclampsia PIH: Serial BPs remain n mild range; no indication for medical intervention CBC and CMP reasuring P:C now meeting criteria for pre-eclampsia with mild features -Scheduled for twice weekly NST and weekly ESTRELLA -Needs monthly growth us -IOL at 37 weeks -Warning signs reviewed FWB: Cat I tracing Warning signs reviewed FU in clinic and with testing as above DX: IUP at 33+6 wga Gestational hypertension Mild pre-eclampsia DOS: 09/10/21 NST read: 09/10/21
== END 2021-09-10 15:50 | disposition home or self-care (01) ==
LOC: WFO 14:17 → FBP 14:19 → WFO 15:50
PROVIDERS: ATTEND Obstetrics & Gynecology
DX: O14.03 Mild to moderate pre-eclampsia, third trimester (principal); O99.283 Endocrine, nutritional and metabolic diseases complicating pregnancy, third trimester; E03.9 Hypothyroidism, unspecified; Z3A.33 33 weeks gestation of pregnancy
CPT/HCPCS: 36415; 59025; 80053; 82570; 84156; 84443; 85025; 99215

== ENCOUNTER 2021-09-16 17:55 | Outpatient (CLI) | payer MEDICAID ==
[2021-09-16 18:55] VITALS: BP 135/94
--- NOTE | 2021-09-16 20:31 | PROCEDURE REPORT ---
- HPI Diagnosis/Indication for NST: Gestational Hypertension Current EDU 10/23/21 Gestation 34 Weeks and 5 Days 2 Para 1 Vital Signs Temperature 98.4 F 09/16/21 18:09 Heart Rate 100 09/16/21 18:09 Respiratory Rate 16 09/16/21 18:09 Blood Pressure 135/94 H 09/16/21 18:09 Temperature 98.4 F 09/16/21 18:09 Heart Rate 100 09/16/21 18:09 Respiratory Rate 16 09/16/21 18:09 Blood Pressure 130/85 H 09/16/21 18:40 O2 Saturation - NST Procedure NST Procedure Start Date 09/16/21 Start Time 18:07 Stop Time 18:34 Vibroacoustic Stimulation Used No Patient States Movement Yes EFM 145 mod jermaine 15x15 accels no decels TOCO: quiet - Results and Plan Findings/Impression: Patient is a 31 yo at 34+5 wga with affected by gestational hypertension here for NST Cat I tracing Cont with twice weekly NST and weekly ESTRELLA DOS: 09/16/21 NST read 09/16/21
--- NOTE | 2021-09-17 15:28 | Ultrasound Report ---
PROCEDURE: OB Biophysical Profile INDICATIONS: GHTN OUTSIDE/PRIOR DATING DATA: Last menstrual period (LMP): 01/16/2021. LMP-based estimated date of delivery (MARLA): 10/23/2021. First dating scan (date and location): 03/14/2021. Estimated date of delivery (MARLA) from first dating scan: 10/23/2021. TECHNIQUE: Real-time scanning was performed of the fetus, with image documentation and biometric altagracia surements. Biophysical profile was also obtained. COMPARISON: OB ultrasound 03/14/2021, 09/16/2021 FINDINGS: General: A single living intrauterine gestation is present. Presentation: Vertex Placenta: Placental position is anterior, without previa. Amniotic fluid index: 16 cm, within normal limits for gestational age. Largest pocket 4.7 cm heart rate: 140 beats per minute. Maternal cervical canal: Not well seen biometrics: Estimated gestational age from initial scan: 34 weeks 5 days Biophysical profile: Tone: 2 points. Movement: 2 points. Respiration: 2 points. Largest pocket of fluid: 2 points. Umbilical artery Doppler: 2.7, 2.6, 3.0 IMPRESSION: Single live intrauterine with ultrasound gestational age of 34 weeks 5 days. BPP 8 out of 8. Reviewed by: Jamilah Goff MD on 09/17/2021 3:27 PM PDT Approved by: Jamilah Goff MD on 09/17/2021 3:27 PM PDT Station ID: [id number]
== END 2021-09-16 18:55 | disposition home or self-care (01) ==
LOC: WFO 17:55 → FBP 17:59 → WFO 18:55
PROVIDERS: ATTEND Obstetrics & Gynecology
DX: O13.3 Gestational [pregnancy-induced] hypertension without significant proteinuria, third trimester (principal); Z3A.34 34 weeks gestation of pregnancy
CPT/HCPCS: 59025

== ENCOUNTER 2021-09-23 17:52 | Outpatient (CLI) | payer MEDICAID ==
[2021-09-23 18:27] VITALS: BP 135/91
--- NOTE | 2021-09-23 18:35 | PROCEDURE REPORT ---
- HPI Current EDU 10/23/21 Gestation 35 Weeks and 5 Days 2 Para 1 Vital Signs Temperature 98.1 F 09/23/21 18:00 Heart Rate 96 09/23/21 18:00 Respiratory Rate 16 09/23/21 18:00 Blood Pressure 135/91 H 09/23/21 18:00 Temperature 98.1 F 09/23/21 18:00 Heart Rate 96 09/23/21 18:00 Respiratory Rate 16 09/23/21 18:00 Blood Pressure 135/91 H 09/23/21 18:00 O2 Saturation - NST Procedure NST Procedure Start Date 09/23/21 Start Time 18:02 Stop Time 18:34 Vibroacoustic Stimulation Used No Patient States Movement Yes - Results and Plan Plan: Patient is a 31 35 weeks 5 days gestation here for scheduled NST NST Performed 09/23/2021 NST Read-09/23/21 FHT: 135 beats per minute baseline, moderate variability, accelerations present, no decelerations. Reactive NST [place]: Quiescent Diagnosis 35 weeks gestation Gestational hypertension Continue with twice weekly NST.
--- NOTE | 2021-09-24 09:42 | Ultrasound Report ---
PROCEDURE: OB Biophysical Profile INDICATIONS: GESTATIONAL HYPERTENSION, THIRD TRIMESTER OUTSIDE/PRIOR DATING DATA: Last menstrual period (LMP): January 16, 2021. LMP-based estimated date of delivery (MARLA): October 23, 2021. First dating scan (date ): March 14, 2021. Estimated date of delivery (MARLA) from first dating scan: October 23, 2021. TECHNIQUE: Real-time scanning was performed of the fetus, with image documentation and biometric altagracia surements. Biophysical profile was also obtained. COMPARISON: Prior studies dating back to June 13, 2021. FINDINGS: General: A single living intrauterine gestation is present. Presentation: Vertex Placenta: Placental position is anterior, without previa. Amniotic fluid index: 18.8 cm, appropriate for gestational age. heart rate: 153 beats per minute. Maternal cervical canal: Not well seen. Estimated gestational age from initial scan: 35 weeks, 5 days. Biophysical profile: Tone: 2 points. Movement: 2 points. Respiration: 2 points. Largest pocket of fluid: 2 points. Umbilical artery Doppler: 2.76, 2.44, 2.39 IMPRESSION: Live single intrauterine gestation as detailed above. Reviewed by: Connor Moctezuma MD on 09/24/2021 9:40 AM PDT Approved by: Connor Moctezuma MD on 09/24/2021 9:40 AM PDT Station ID: [id number]
== END 2021-09-23 18:40 | disposition home or self-care (01) ==
LOC: WFO 17:52 → FBP 17:54 → WFO 18:40
PROVIDERS: ATTEND Obstetrics & Gynecology
DX: O13.3 Gestational [pregnancy-induced] hypertension without significant proteinuria, third trimester (principal); Z3A.35 35 weeks gestation of pregnancy
CPT/HCPCS: 59025

== ENCOUNTER 2021-09-24 08:00 | Outpatient (CLI) | payer MEDICAID | END 2021-09-24 23:59 | disposition home or self-care (01) | LOC: LAB.WC 08:00 | PROVIDERS: ATTEND Obstetrics & Gynecology | DX: Z36.85 Encounter for antenatal screening for Streptococcus B (principal) | CPT/HCPCS: 87797 ==

== ENCOUNTER 2021-09-30 10:56 | Outpatient (CLI) | payer MEDICAID ==
[2021-09-30] MEDS ORDERED: LABETALOL 20 MG/4 ML SYRINGE IVP PRN (12:02)
[2021-09-30 12:17] LABS: BASOPHILS # (AUTO) 0.1 10^3/uL (0.0-0.1); BASOPHILS % (AUTO) 0.4 %; EOSINOPHILS # (AUTO) 0.1 10^3/uL (0.0-0.7); EOSINOPHILS % (AUTO) 0.9 %; HCT - HEMATOCRIT 33.7 % (37.0-47.0); HGB - HEMOGLOBIN 12.1 g/dL (12.0-16.0); LYMPHOCYTES # (AUTO) 1.9 10^3/uL (1.5-3.5); LYMPHOCYTES % (AUTO) 16.6 %; MEAN CORPUSCULAR HEMOGLOBIN 31.8 pg (27.0-31.0); MEAN CORPUSCULAR HGB CONC 35.9 g/dL (32.0-36.0); MEAN CORPUSCULAR VOLUME 88.5 fL (81.0-99.0); MEAN PLATELET VOLUME 8.6 fL (7.9-10.8); MONOCYTES # (AUTO) 0.6 10^3/uL (0.0-1.0); NEUTROPHILS # (AUTO) 8.5 10^3/uL (1.5-6.6); NEUTROPHILS % (AUTO) 76.5 %; PLT - PLATELET COUNT 218 10^3/uL (130-450); RED BLOOD COUNT 3.81 10^6/uL (4.20-5.40); RED CELL DISTRIBUTION WIDTH 13.8 % (12.0-15.0); WHITE BLOOD COUNT 11.2 x10^3/uL (4.8-10.8)
[2021-09-30 12:30] LABS: ALBUMIN 3.1 g/dL (3.2-5.5); ALBUMIN/GLOBULIN RATIO 0.8 (1.0-2.2); BILIRUBIN,TOTAL 0.7 mg/dL (0.2-1.0); CALCIUM 9.2 mg/dL (8.5-10.3); CREATININE 0.8 mg/dL (0.4-1.0); POTASSIUM 3.4 mmol/L (3.5-5.0); TOTAL PROTEIN 7.2 g/dL (6.7-8.2)
[2021-09-30 12:51] LABS: CREATININE,URINE 191.4 mg/dL; PROTEIN/CREATININE RATIO,URINE 0.1 (<=0.2)
[2021-09-30 13:21] VITALS: BP 146/100
--- NOTE | 2021-09-30 13:52 | PROCEDURE REPORT ---
- HPI Diagnosis/Indication for NST: Gestational Hypertension Current EDU 10/23/21 Gestation 36 Weeks and 5 Days 2 Para 1 Vital Signs Temperature 98.2 F 09/30/21 11:41 Heart Rate 95 09/30/21 11:41 Respiratory Rate 16 09/30/21 11:41 Blood Pressure 146/100 H 09/30/21 11:41 Temperature 98.2 F 09/30/21 11:41 Heart Rate 95 09/30/21 11:41 Respiratory Rate 16 09/30/21 11:41 Blood Pressure 145/95 H 09/30/21 12:56 O2 Saturation - NST Procedure NST Procedure Start Date 09/30/21 Start Time 11:36 Stop Time 12:20 Vibroacoustic Stimulation Used No Patient States Movement Yes - Results and Plan Findings/Impression: heart rate baseline-130 beats per minutes Moderate variability Accelerations- 15 x15 BPM Decelerations- none Contractions- absent NST reactive and reassuring Plan: 31-year-old G2, P1 at 36 weeks 5 days presenting for NST for history of gestational hypertension versus preeclampsia. #Gestational hypertension versus preeclampsia patient with mild range blood pressures of 140-150s/90-100s, Labs within normal limits. Urine protein creatinine ratio today was 2.1, Previously 0.3. Patient was discussed with Dr. Ramos who has her scheduled for induction on at 37 weeks. Plan for blood pressure monitoring at home. Patient was given preeclampsia warnings and told to come in for severe range blood pressures, or preeclampsia symptoms. Kick count precautions given. NST reactive and reassuring.
--- NOTE | 2021-10-01 09:00 | Ultrasound Report ---
PROCEDURE: OB Biophysical Profile INDICATIONS: GESTATIONAL HYPERTENSION OUTSIDE/PRIOR DATING DATA: Last menstrual period (LMP): January 16, 2021. LMP-based estimated date of delivery (MARLA): October 23, 2021. First dating scan (date and location): March 14, 2021. Estimated date of delivery (MARLA) from first dating scan: October 23, 2021. TECHNIQUE: Real-time scanning was performed of the fetus, with image documentation and biometric altagracia surements. Biophysical profile was also obtained. COMPARISON: Prior studies dating back to September 16, 2021 FINDINGS: General: A single living intrauterine gestation is present. Presentation: Vertex Placenta: Placental position is anterior, without previa. Amniotic fluid index: 17.2 cm, appropriate for gestational age. heart rate: 145 beats per minute. Maternal cervical canal: Not well seen . Estimated gestational age from initial scan: 36 weeks, 5 days. Measurement variability in biometric dating: +/- 10 days from 12-20 weeks gestation, +/- 2 weeks from 20-30 weeks gestation, +/- 3 weeks at 30 weeks gestation or later. Biophysical profile: Tone: 2 points. Movement: 2 points. Respiration: 2 points. Largest pocket of fluid: 2 points. Umbilical artery Doppler: 2.9, 2.2, 2.5 IMPRESSION: Live single intrauterine gestation as detailed above. Reviewed by: Connor Moctezuma MD on 10/01/2021 8:58 AM PDT Approved by: Connor Moctezuma MD on 10/01/2021 8:58 AM PDT Station ID: [id number]
== END 2021-09-30 13:20 | disposition home or self-care (01) ==
LOC: DI 10:56 → FBP 11:30 → WFO 13:20
PROVIDERS: ATTEND Obstetrics & Gynecology
DX: O13.3 Gestational [pregnancy-induced] hypertension without significant proteinuria, third trimester (principal); Z3A.36 36 weeks gestation of pregnancy
CPT/HCPCS: 36415; 59025; 80053; 82570; 84156; 85025; 99215

== ENCOUNTER 2021-10-02 07:30 | Inpatient (IN) | payer MEDICAID ==
[2021-10-02] MEDS ORDERED: SODIUM CHLORIDE FLUSH 0.9% 10 ML SYRINGE IVP PRN ×2 (07:56→08:40)
[2021-10-02] MEDS ORDERED: SODIUM CHLORIDE FLUSH 0.9% 10 ML SYRINGE IVP SCH ×2 (08:00→09:00)
[2021-10-02] MEDS ORDERED: hydrALAZINE INJ 20 MG/ML VIAL IVP PRN ×2 (08:40)
[2021-10-02] MEDS ORDERED: OXYTOCIN/SODIUM CHLORIDE 500 ML IV PRN (08:40)
[2021-10-02] MEDS ORDERED: METHYLERGONOVINE 0.2 MG/ML VIAL IM PRN (08:40)
[2021-10-02] MEDS ORDERED: miSOPROStoL 200 MCG TABLET BC PRN (08:40)
[2021-10-02] MEDS ORDERED: LIDOCAINE-MPF 1% 30 ML VIAL ID PRN (08:40)
[2021-10-02] MEDS ORDERED: TRANEXAMIC ACID IN NACL 1,000 MG/100 ML BAG IV PRN (08:40)
[2021-10-02] MEDS ORDERED: LABETALOL 20 MG/4 ML SYRINGE IVP PRN ×3 (08:40)
[2021-10-02] MEDS ORDERED: TERBUTALINE 1 MG/ML VIAL SUBQ PRN (08:40)
[2021-10-02] MEDS ORDERED: CARBOPROST TROMETHAMINE 250 MCG/ML AMP IM PRN (08:40)
[2021-10-02] MEDS ORDERED: fentaNYL 100 MCG/2 ML VIAL IVP PRN (08:40)
[2021-10-02] MEDS ORDERED: NIFEdipine 10 MG CAPSULE PO PRN (08:40)
[2021-10-02] MEDS ORDERED: OXYTOCIN 10 UNIT/ML VIAL IM PRN (08:40)
[2021-10-02] MEDS ORDERED: miSOPROStoL 200 MCG TABLET PR PRN (08:40)
--- NOTE | 2021-10-02 08:40 | HISTORY & PHYSICAL EXAMINATION ---
Admit History - Visit Reason Visit Reason: Other (Induction of Labor) - : 2 Parity: 1 Care: positive: [facility] Risk/History: positive: induced HTN, Other (Hypothyroidism) Smoking Status: Never smoker - Mother's Labs Mother's Blood Type: positive: O Mother's RH: positive: Positive GBS: positive: Group B Step Negative Rubella Status: positive: Immune - Other Maternal History Other Maternal History: Patient is a 31-year-old at 37 weeks 0 days gestation presenting for induction of labor secondary to gestational hypertension. She denies contractions, leaking, bleeding. She has good movement. No headache, vision changes, or right upper quadrant pain. All other symptoms reviewed and were negative except per HPI. History LMP: 01/16/2021 MARLA by LMP: 10/23/2021 US Date 03/14/2021, US Age 8 weeks 1 day, MARLA by ultrasound: 10/23/2021 Final MARLA: 10/23/2021 by LMP consistent with 8 week ultrasound GHTN: on ASA 81 mg -Consistently elevated BP in mild range. No symptoms. PIH labs Done 08/13 normal. -Warning signs reviewed - NST/BPP started at 32 weeks -Growth us ordered- not yet completed -Plan for induction of labor at 37 weeks. Hypothyroidism: TSH now 2.49, improved from 7.49 on levothyroxine 50 mcg daily 08/07/21 TSH 2.44 TSH 2.1 on 09/10/21. O pos/Rubella : IMMUNE VZV: IMMUNE Genetic testing: Discussed and declined. Confirmed declination FAS: EFW 74%ile, CL 5.0 cm. 3VC, anterior, FAS wnl, need fu RVOT. Placental macario. -OB FU US , RVOT cleared and no mention of placental lakes Glucola: 131 TDAP: 07/31/2021 Influenza : given 03/27/2021 Covid : Pfizer 11/30/2020 - 12/21/2020, 07/11/21 GBS @ 35.6 weeks - collected today HSV: Denies Breast pump Rx given 07/15 MOD:Anticipate . IOL at 37 weeks. Consents signed today pp contraception:Likely OCPs. Pap 03/24/2021: Normal Past Medical History: Anxiety Depression Past Surgical History Negative Social History: Former smoker, no current tobacco use. No alcohol or drug use in . Family History: Mother: Mental health disease Father: Depression Maternal grandmother: "Multiple health concerns" Paternal grandmother: Breast cancer Maternal grandfather: diabetes Physical exam: Temp Pulse Resp BP Pulse Ox 98.2 F 90 16 133/90 H 10/02/21 08:49 10/02/21 08:49 10/02/21 08:49 10/02/21 08:49 General: Alert, oriented, no acute distress Head: Normal cephalic atraumatic Eyes: PERRLA, extraocular motions intact. Respiratory: Normal rate of respiration. No accessory muscle use, normal respiratory effort. Cardiovascular: Regular rate and rhythm Abdomen: Gravid, nontender, nondistended Extremities: Normal range of motion Neuro: Oriented x3. Normal movements Psych: Appropriate mood and affect. Normal judgment and insight SVE: FHT: 145 bpm baseline, moderate variability, accelerations present, no declerations. [place]: quiescent 31-year-old G2, P1 0 days gestation admitted for gestational hypertension 1. Induction of labor -Plan for cervical ripening with misoprostol. -Later amniotomy and oxytocin 2. Gestational hypertension. -BP elevated, but non-severe. -CBC, CMP pending 3. 37-weeks gestation. 4. hypothyroidism -Continue home levothyroxine. Meds/Allgy - Home Medications Home Medications: Ambulatory Orders Medication Instructions Recorded Confirmed Labetalol HCl 100 mg PO BID 07/22/17 07/22/17 Vitamin [Trinatal Rx 1] 1 each PO DAILY 07/22/17 07/22/17 - Allergies Allergies/Adverse Reactions: Allergies Allergy/AdvReac Type Severity Reaction Status Date / Time No Known Drug Allergies Allergy Verified 01/31/15 21:24 Physical - Monitoring Heart Rate Baseline: 145 bpm baseline, moderate variability, accelerations present, no decels Strip Review: positive: Category I - Presentation Presentation: positive: Vertex - Vaginal Exam Membranes: positive: Membranes intact
[2021-10-02 08:56] LABS: BASOPHILS # (AUTO) 0.1 10^3/uL (0.0-0.1); BASOPHILS % (AUTO) 0.5 %; EOSINOPHILS # (AUTO) 0.1 10^3/uL (0.0-0.7); EOSINOPHILS % (AUTO) 1.2 %; HCT - HEMATOCRIT 34.5 % (37.0-47.0); HGB - HEMOGLOBIN 12.1 g/dL (12.0-16.0); LYMPHOCYTES # (AUTO) 1.9 10^3/uL (1.5-3.5); LYMPHOCYTES % (AUTO) 16.5 %; MEAN CORPUSCULAR HEMOGLOBIN 31.3 pg (27.0-31.0); MEAN CORPUSCULAR HGB CONC 35.1 g/dL (32.0-36.0); MEAN CORPUSCULAR VOLUME 89.4 fL (81.0-99.0); MEAN PLATELET VOLUME 9.1 fL (7.9-10.8); MONOCYTES # (AUTO) 0.6 10^3/uL (0.0-1.0); NEUTROPHILS # (AUTO) 8.6 10^3/uL (1.5-6.6); NEUTROPHILS % (AUTO) 76.1 %; PLT - PLATELET COUNT 235 10^3/uL (130-450); RED BLOOD COUNT 3.86 10^6/uL (4.20-5.40); RED CELL DISTRIBUTION WIDTH 13.8 % (12.0-15.0); WHITE BLOOD COUNT 11.3 x10^3/uL (4.8-10.8)
[2021-10-02] MEDS: miSOPROStoL 100 MCG TABLET BC SCH ×2 (09:34→13:39)
[2021-10-02 09:37] LABS: ALBUMIN 2.9 g/dL (3.2-5.5); ALBUMIN/GLOBULIN RATIO 0.8 (1.0-2.2); BILIRUBIN,TOTAL 0.5 mg/dL (0.2-1.0); CALCIUM 8.9 mg/dL (8.5-10.3); CREATININE 0.8 mg/dL (0.4-1.0); POTASSIUM 3.2 mmol/L (3.5-5.0); TOTAL PROTEIN 6.7 g/dL (6.7-8.2)
--- NOTE | 2021-10-02 17:44 | PROVIDER PROGRESS NOTE ---
Labor Progress Note - Uterine Monitoring Uterine Monitoring Mode: positive: External toco Contraction Frequency (min/apart): 3-5 Contraction Intensity: positive: Mild Uterine Resting Tone: positive: Soft - Monitoring Monitor Mode: positive: External ultrasound Heart Rate Baseline: 135 Heart Rate Variability: positive: Moderate (6-25 bmp) Accelerations: positive: Present, 15x15 Decelerations: positive: None Strip Review: positive: Category I - Vaginal Exam Dilation (in cm): 2 Effacement (%): 60 Station: -2 - Labor Progress Note Labor Progress Note/Additional Text: Patient status post 2 doses misoprostol. More dilated and effaced. We will start oxytocin to get adequate contractions. Anticipate amniotomy later this evening. Fetus remains category 1.
--- NOTE | 2021-10-02 17:47 | PROVIDER PROGRESS NOTE ---
Labor Progress Note - Uterine Monitoring Uterine Monitoring Mode: positive: External toco Contraction Frequency (min/apart): 2-5 Contraction Intensity: positive: Mild Uterine Resting Tone: positive: Soft - Monitoring Monitor Mode: positive: External ultrasound Heart Rate Baseline: 135 Heart Rate Variability: positive: Moderate (6-25 bmp) Accelerations: positive: Present, 15x15 Decelerations: positive: None - Labor Progress Note Labor Progress Note/Additional Text: Cervical ripening balloon remains in place while I provide traction. Currently 60 internal and 40 external. Plan to leave in for up to 12 hours. We will remove at that time. Hopefully cervix will dilate sufficiently that we can perform amniotomy and place IUPC and titrate oxytocin if possible. Fetus remains category 1 and is tolerating labor. We will continue cervical ripening with balloon at this time.
[2021-10-02] MEDS: LACTATED RINGERS 1,000 ML IV SCH (18:23)
[2021-10-02] MEDS: OXYTOCIN/SODIUM CHLORIDE 500 ML IV SCH (18:24)
--- NOTE | 2021-10-03 00:55 | PROVIDER PROGRESS NOTE ---
Labor Progress Note - Uterine Monitoring Uterine Monitoring Mode: positive: External toco Contraction Frequency (min/apart): 2 to 4 minutes Contraction Intensity: positive: Moderate Uterine Resting Tone: positive: Soft - Monitoring Monitor Mode: positive: External ultrasound Heart Rate Baseline: 135 Heart Rate Variability: positive: Moderate (6-25 bmp) Accelerations: positive: Present, 15x15 Decelerations: positive: None Strip Review: positive: Category I - Vaginal Exam Dilation (in cm): 2 Effacement (%): 40 Station: -2, Ballotable Cervical Position: Midposition - Labor Progress Note Labor Progress Note/Additional Text: Labor course: Patient received 2 doses misoprostol followed by oxytocin, currently at 10 milliunits/min. Have not been able to increase due to contraction frequency. Cervical exam remains essentially unchanged. Plan to stop oxytocin for 30 minutes then restart. Offered cervical ripening balloon, but patient is feeling uncomfortable. Wants to consider epidural prior to balloon placement. I did not feel I could safely break water at this level of dilation and ballotable head. We will continue oxytocin at this time.
[2021-10-03] MEDS: LACTATED RINGERS 1,000 ML IV SCH (03:26)
[2021-10-03] MEDS ORDERED: buPROPion XL 150 MG TABLET PO ONE (04:00)
[2021-10-03] MEDS ORDERED: ROPIVACAINE 0.2% 0 MG/0 ML BAG EP ONE (04:04)
[2021-10-03] MEDS ORDERED: LEVOTHYROXINE 25 MCG TABLET PO SCH (07:00)
[2021-10-03] MEDS: LEVOTHYROXINE 100 MCG TABLET PO SCH (07:31)
[2021-10-03] MEDS: FAMOTIDINE 20 MG TABLET PO SCH (09:55)
--- NOTE | 2021-10-03 10:10 | PROVIDER PROGRESS NOTE ---
Labor Progress Note - Uterine Monitoring Uterine Monitoring Mode: positive: External toco Contraction Frequency (min/apart): 2-4 Contraction Intensity: positive: Mild Uterine Resting Tone: positive: Soft - Monitoring Monitor Mode: positive: External ultrasound Heart Rate Baseline: 150 Heart Rate Variability: positive: Moderate (6-25 bmp) Accelerations: positive: Present, 15x15 Decelerations: positive: None Strip Review: positive: Category I - Vaginal Exam Dilation (in cm): 2 Effacement (%): 25 Station: -2 Cervical Position: Midposition - Labor Progress Note Labor Progress Note/Additional Text: 31 year old at 37 weeks 1 day admitted for induction of labor secondary to gestational hypertension. #Induction of labor- Status post misoprostol, SVE 225 and -2. Lee bulb placed using sterile technique. Inflated with 60 cc of saline. We will restart Pitocin and titrate per protocol.External monitoring category 1. #Gestational hypertension.Blood pressures currently within normal limits. Labs within normal limits. We will continue to monitor. #Hypothyroidismon home levothyroxine
[2021-10-03] MEDS ORDERED: LACTATED RINGERS 1,000 ML IV SCH ×2 (15:39→22:00)
--- NOTE | 2021-10-03 15:43 | ANESTHESIA ---
Pre-Anesthesia VS, & Labs - Diagnosis active labor/ induction of labor - Procedure vaginal delivery Vital Signs: Temp Pulse Resp BP Pulse Ox 36.8 C 90 16 133/90 H 10/02/21 08:49 10/02/21 08:49 10/02/21 08:49 10/02/21 08:49 Height: 5 ft 6 in Weight (kg): 97.069 kg Body Mass Index: 34.5 BMI Classification: Obese - NPO Last Fluid Intake: clear liquids - Is Patient ?: Yes - Lab Results Current Lab Results: Laboratory Tests 10/02/21 09:22: Sodium 134 L, Potassium 3.2 L, Chloride 105, Carbon Dioxide 18 L , Anion Gap 11.0, BUN 7, Creatinine 0.8, Estimated GFR (MDRD) 85 L, Glucose 121 H, Calcium 8.9, Total Bilirubin 0.5, AST 22, ALT 12, Alkaline Phosphatase 474 H, Total Protein 6.7, Albumin 2.9 L, Globulin 3.8, Albumin/Globulin Ratio 0.8 L 10/02/21 08:40: WBC 11.3 H, RBC 3.86 L, Hgb 12.1, Hct 34.5 L, MCV 89.4, MCH 31.3 H, MCHC 35.1, RDW 13.8, Plt Count 235, MPV 9.1, Neut # (Auto) 8.6 H, Lymph # (Auto) 1.9, [place] # (Auto) 0.6, Eos # (Auto) 0.1, Baso # (Auto) 0.1, Absolute Nucleated RBC 0.00, Nucleated RBC % 0.0 10/02/21 08:40: Blood Type O POSITIVE, Antibody Screen NEGATIVE Fish Bones: 10/02/21 08:40 10/02/21 09:22 Home Medications and Allergies Active Medications Bupropion HCl (Bupropion Xl 150 Mg Tablet) 150 mg PO HS KEVIN Carboprost Tromethamine (Carboprost Tromethamine 250 Mcg/Ml Amp) 250 mcg IM .ONCE PRN PRN Reason: Hemorrhage Famotidine (Famotidine 20 Mg Tablet) 40 mg PO DAILY [facility] Last Admin: 10/03/21 09:55 Dose: 40 mg Fentanyl (Fentanyl 100 Mcg/2 Ml Vial) 50 mcg IVP Q1H PRN PRN Reason: Severe Pain (score 7-10) Last Admin: 10/03/21 11:42 Dose: 50 mcg Hydralazine HCl (Hydralazine Inj 20 Mg/Ml Vial) 5 - 20 mg IVP Q20M PRN; Protocol PRN Reason: SBP> or= 160 OR DBP> or= 110 Hydralazine HCl (Hydralazine Inj 20 Mg/Ml Vial) 10 mg IVP .ONCE PRN; Protocol PRN Reason: SBP> or= 160 OR DBP> or= 110 Oxytocin/Sodium Chloride (Pitocin/Sodium Chloride) 500 mls @ 999 mls/hr IV PRN PRN; Protocol PRN Reason: POST- HEMORR PREVENTION Tranexamic Acid (Tranexamic 1,000 Mg/100ml-Nacl) 1,000 mg in 100 mls @ 600 mls/hr IV Q30M PRN PRN Reason: EBL >1200mL and within 3hr Oxytocin/Sodium Chloride (Pitocin/Sodium Chloride) 500 mls @ 2 mls/hr IV TITR KEVIN; Protocol Last Admin: 10/02/21 18:24 Dose: 2 milliunit/min, 2 mls/hr Lactated Ringer's (Lr) 1,000 mls @ 125 mls/hr IV .Q8H KEVIN Labetalol HCl (Labetalol 20 Mg/4 Ml Syringe) 20 - 80 mg IVP Q10M PRN; Protocol PRN Reason: SBP> or= 160 OR DBP> or= 110 Labetalol HCl (Labetalol 20 Mg/4 Ml Syringe) 20 mg IVP .ONCE PRN; Protocol PRN Reason: SBP> or= 160 OR DBP> or= 110 Labetalol HCl (Labetalol 20 Mg/4 Ml Syringe) 20 - 40 mg IVP Q10M PRN; Protocol PRN Reason: SBP> or= 160 OR DBP> or= 110 Levothyroxine Sodium (Levothyroxine 100 Mcg Tablet) 100 mcg PO QDAC [facility] Last Admin: 10/03/21 07:31 Dose: 100 mcg Methylergonovine Maleate (Methylergonovine 0.2 Mg/Ml Vial) 0.2 mg IM .ONCE PRN PRN Reason: Hemorrhage Misoprostol (Misoprostol 200 Mcg Tablet) 600 mcg BC .ONCE PRN PRN Reason: Hemorrhage Misoprostol (Misoprostol 200 Mcg Tablet) 800 mcg [place] .ONCE PRN PRN Reason: Hemorrhage Nifedipine (Nifedipine 10 Mg Capsule) 10 - 20 mg PO Q20M PRN; Protocol PRN Reason: SBP> or= 160 OR DBP> or= 110 Oxytocin (Oxytocin 10 Unit/Ml Vial) 10 unit IM .ONCE PRN PRN Reason: Step One if no IV access. Sodium Chloride (Sodium Chloride Flush 0.9% 10 Ml Syringe) 10 ml IVP PRN PRN PRN Reason: NEEDED PER PROVIDER ORDERS Sodium Chloride (Sodium Chloride Flush 0.9% 10 Ml Syringe) 10 ml IVP Q8H KEVIN Sodium Chloride (Sodium Chloride Flush 0.9% 10 Ml Syringe) 10 ml IVP PRN PRN PRN Reason: NEEDED PER PROVIDER ORDERS Sodium Chloride (Sodium Chloride Flush 0.9% 10 Ml Syringe) 10 ml IVP Q8H KEVIN Terbutaline Sulfate (Terbutaline 1 Mg/Ml Vial) 0.25 mg SUBQ .ONCE PRN PRN Reason: Tachystole Labetalol HCl 100 mg PO BID 07/22/17 Vitamin [Trinatal Rx 1] 1 each PO DAILY 07/22/17 Allergies/Adverse Reactions: Allergies Allergy/AdvReac Type Severity Reaction Status Date / Time No Known Drug Allergies Allergy Verified 01/31/15 21:24 Anes History & Medical History - Anesthetic History Family history of Anesthesia Complications: Denies Family history of Malignant Hyperthermia: Denies - Medical History Cardiovascular: reports: Hypertension (PIH) Pulmonary: reports: None Gastrointestinal: reports: None Urinary: reports: None Neuro: reports: None Musculoskeletal: reports: None Endocrine/Autoimmune: reports: HyPOthyroidism Blood Disorders: reports: None Skin: reports: None Smoking Status: Former smoker (quit 9 months ago) Psychosocial: reports: No issues indicated History of Cancer?: No - Obstetrical History : 2 Parity: 1 Events: reports: induced HTN, Other (Hypothyroidism) Exam General: Alert, Oriented x3, Cooperative, No acute distress Dental: WNL Mouth Openin Fingerbreadth Neck Mobility: Normal Mallampati classification: III Thyromental Distance: 4-6 cm Mental/Cognitive Status: Alert/Oriented X3, Normal for patient Plan Anesthesia Type: Epidural Consent for Procedure(s) Verified and Reviewed: Yes Code Status: Attempt Resuscitation ASA classification: 2-Mild systemic disease Is this case an emergency?: No
--- NOTE | 2021-10-03 18:20 | PROVIDER PROGRESS NOTE ---
Labor Progress Note - Uterine Monitoring Uterine Monitoring Mode: positive: External toco Contraction Intensity: positive: Moderate - Monitoring Monitor Mode: positive: External ultrasound Heart Rate Variability: positive: Moderate (6-25 bmp) Accelerations: positive: Present, 15x15 Decelerations: positive: None Strip Review: positive: Category I - Vaginal Exam Dilation (in cm): 4 Effacement (%): 50 Station: -2 Cervical Position: Midposition - Labor Progress Note Labor Progress Note/Additional Text: 31 year old at 37 weeks 1 day admitted for induction of labor secondary to gestational hypertension. #Induction of labor- Status post misoprostol. S/p Lee bulb. /-2. Pitocin titration per protocol. External monitoring category 1. #Gestational hypertension.Blood pressures currently within normal limits. Mild range BP's noted previously. Asymptomatic. Labs within normal limits. #Hypothyroidismon home levothyroxine
[2021-10-03] MEDS ORDERED: ROPIVACAINE 0.2% 200 MG/100 ML BAG EP PRN (18:42)
[2021-10-03] MEDS ORDERED: NALOXONE 0.4 MG/ML VIAL IVP PRN (18:42)
[2021-10-03] MEDS ORDERED: ePHEDrine 50 MG/ML VIAL IVP PRN (18:42)
[2021-10-03] MEDS ORDERED: ONDANSETRON 4 MG/2 ML VIAL IVP PRN (18:47)
[2021-10-03] MEDS ORDERED: buPROPion XL 150 MG TABLET PO SCH (21:00)
[2021-10-03] MEDS ORDERED: NALBUPHINE 10 MG/ML AMP IVP PRN (21:52)
[2021-10-03] MEDS ORDERED: oxyCODONE 5 MG TABLET PO PRN (21:52)
[2021-10-03] MEDS: OXYTOCIN/SODIUM CHLORIDE 500 ML IV SCH (22:00)
--- NOTE | 2021-10-03 22:05 | DELIVERY NOTE ---
Delivery Note - Labor Labor: positive: Other (Induction of labor with misoprostol, linn bulb and oxytocin.) - Infant Delivery Method Delivery Method: positive: Spontaneous vaginal delivery - Cervical Ripening Method Cervical Ripening Method: positive: Balloon device, Misoprostil - Presentation Presentation: positive: Vertex - Nuchal Cord Nuchal Cord: positive: Present (x1) - Anesthetic Anesthetic Type: - Amniotic Fluid Description Amniotic Fluid Description: positive: Clear - Laceration Laceration: positive: None - Delivery Outcome Delivery Outcome: positive: Livebirth - Welch : positive: Placed in direct skin contact with mother, Bulb syringe, Stimulated Welch sex: positive: Male - Placenta Placenta: positive: Intact, Spontaneous - Estimated Blood Loss Estimated Blood Loss (in cc): 300 - Post Delivery Events Post Delivery Events: positive: No post delivery events - Delivery Comments (Free Text/Narrative) Delivery Comments (Free Text/Narrative): The patient progressed to complete cervical dilation. She was placed in dorsal lithotomy position. The head was delivered with maternal pushing followed subsequently by anterior shoulder and remainder the baby. With delivery of the head a nuchal cord was noted. This was not reducible until after delivery. The baby was vigorous at delivery. The cord cord clamping was delayed for 1 minute. The cord was doubly clamped and cut and the baby placed on the maternal chest. A cord cord blood was obtained. The placenta was delivered with fundal massage. The fundus is noted to be firm. Evaluation of the perineum revealed no lacerations. The patient remained in stable condition.
[2021-10-03] MEDS: ACETAMINOPHEN 500 MG TABLET PO SCH (23:27)
[2021-10-03] MEDS: buPROPion XL 150 MG TABLET PO SCH (23:28)
[2021-10-03] MEDS: IBUPROFEN 600 MG TABLET PO SCH (23:28)
[2021-10-04] MEDS: IBUPROFEN 600 MG TABLET PO SCH ×4 (06:38→20:20)
[2021-10-04 07:20] LABS: BASOPHILS # (AUTO) 0.1 10^3/uL (0.0-0.1); BASOPHILS % (AUTO) 0.5 %; EOSINOPHILS # (AUTO) 0.1 10^3/uL (0.0-0.7); EOSINOPHILS % (AUTO) 0.4 %; HCT - HEMATOCRIT 33.9 % (37.0-47.0); HGB - HEMOGLOBIN 11.9 g/dL (12.0-16.0); LYMPHOCYTES # (AUTO) 2.1 10^3/uL (1.5-3.5); LYMPHOCYTES % (AUTO) 13.3 %; MEAN CORPUSCULAR HEMOGLOBIN 31.4 pg (27.0-31.0); MEAN CORPUSCULAR HGB CONC 35.1 g/dL (32.0-36.0); MEAN CORPUSCULAR VOLUME 89.4 fL (81.0-99.0); MEAN PLATELET VOLUME 8.9 fL (7.9-10.8); MONOCYTES # (AUTO) 0.8 10^3/uL (0.0-1.0); NEUTROPHILS # (AUTO) 12.5 10^3/uL (1.5-6.6); NEUTROPHILS % (AUTO) 80.3 %; PLT - PLATELET COUNT 226 10^3/uL (130-450); RED BLOOD COUNT 3.79 10^6/uL (4.20-5.40); WHITE BLOOD COUNT 15.5 x10^3/uL (4.8-10.8)
[2021-10-04] MEDS: LEVOTHYROXINE 100 MCG TABLET PO SCH (07:38)
[2021-10-04] MEDS: ACETAMINOPHEN 500 MG TABLET PO SCH ×2 (08:05→16:12)
[2021-10-04] MEDS: FAMOTIDINE 20 MG TABLET PO SCH (09:35)
--- NOTE | 2021-10-04 10:57 | PROVIDER PROGRESS NOTE ---
Subjective - Prog Note Date Prog Note Date: 10/04/21 Prog Note Time: 10:54 - Subjective Subjective: Patient has no complaints. She reports minimal vaginal bleeding. She is ambulating without difficulty. Her pain is well controlled. Current Medications - Current Medications Current Medications: Active Medications Generic Name Dose Route Start Last Admin Trade Name Felicianoq PRN Reason Stop Dose Admin Acetaminophen 1,000 mg 10/03/21 22:00 10/04/21 08:05 Acetaminophen 500 Mg Tablet PO 1,000 mg Q8H KEVIN Administration Bupropion HCl 150 mg 10/03/21 21:00 10/03/21 23:28 Bupropion Xl 150 Mg Tablet PO 150 mg HS KEVIN Administration Carboprost Tromethamine 250 mcg 10/02/21 08:40 Carboprost Tromethamine 250 Mcg/Ml Amp IM .ONCE PRN Hemorrhage Famotidine 40 mg 10/03/21 09:00 10/04/21 09:35 Famotidine 20 Mg Tablet PO 40 mg DAILY KEVIN Administration Hydralazine HCl 5 - 20 mg 10/02/21 08:40 Hydralazine Inj 20 Mg/Ml Vial IVP Q20M PRN SBP> or= 160 OR DBP> or= 110 Protocol Hydralazine HCl 10 mg 10/02/21 08:40 Hydralazine Inj 20 Mg/Ml Vial IVP .ONCE PRN SBP> or= 160 OR DBP> or= 110 Protocol Oxytocin/Sodium Chloride 500 mls @ 999 mls/hr 10/02/21 08:40 Pitocin/Sodium Chloride IV PRN PRN POST- HEMORR PREVENTION Protocol 999 MILLIUNIT/MIN Tranexamic Acid 1,000 mg in 100 mls @ 600 mls/hr 10/02/21 08:40 Tranexamic 1,000 Mg/100ml-Nacl IV Q30M PRN EBL >1200mL and within 3hr Oxytocin/Sodium Chloride 500 mls @ 2 mls/hr 10/02/21 18:00 10/03/21 23:30 Pitocin/Sodium Chloride IV Infused TITR KEVIN Titration Protocol 2 MILLIUNIT/MIN Lactated Ringer's 1,000 mls @ 125 mls/hr 10/03/21 15:39 10/03/21 15:47 Lr IV 75 mls/hr .Q8H KEVIN Administration Ropivacaine 200 mg in 100 mls @ 0 mls/hr 10/03/21 18:42 Naropin 0.2% EP PRN PRN PAIN Protocol Per Protocol Lactated Ringer's 1,000 mls @ 100 mls/hr 10/03/21 22:00 Lr IV .Q10H KEVIN Ibuprofen 600 mg 10/03/21 22:00 10/04/21 06:38 Ibuprofen 600 Mg Tablet PO 600 mg Q6H KEVIN Administration Labetalol HCl 20 - 80 mg 10/02/21 08:40 Labetalol 20 Mg/4 Ml Syringe IVP Q10M PRN SBP> or= 160 OR DBP> or= 110 Protocol Labetalol HCl 20 mg 10/02/21 08:40 Labetalol 20 Mg/4 Ml Syringe IVP .ONCE PRN SBP> or= 160 OR DBP> or= 110 Protocol Labetalol HCl 20 - 40 mg 10/02/21 08:40 Labetalol 20 Mg/4 Ml Syringe IVP Q10M PRN SBP> or= 160 OR DBP> or= 110 Protocol Levothyroxine Sodium 100 mcg 10/03/21 07:00 10/04/21 07:38 Levothyroxine 100 Mcg Tablet PO 100 mcg QDAC KEVIN Administration Misoprostol 600 mcg 10/02/21 08:40 Misoprostol 200 Mcg Tablet BC .ONCE PRN Hemorrhage Misoprostol 800 mcg 10/02/21 08:40 Misoprostol 200 Mcg Tablet [place] .ONCE PRN Hemorrhage Nalbuphine HCl 5 mg 10/03/21 21:52 Nalbuphine 10 Mg/Ml Amp IVP Q4H PRN ITCHING Naloxone HCl 0.1 mg 10/03/21 18:42 Naloxone 0.4 Mg/Ml Vial IVP Q2M PRN RR<8 Nifedipine 10 - 20 mg 10/02/21 08:40 Nifedipine 10 Mg Capsule PO Q20M PRN SBP> or= 160 OR DBP> or= 110 Protocol Ondansetron HCl 4 mg 10/03/21 18:47 10/03/21 18:51 Ondansetron 4 Mg/2 Ml Vial IVP 4 mg Q4HR PRN Administration Nausea / Vomiting Oxycodone HCl 5 mg 10/03/21 21:52 Oxycodone 5 Mg Tablet PO Q4HR PRN Severe Pain Oxytocin 10 unit 10/02/21 08:40 Oxytocin 10 Unit/Ml Vial IM .ONCE PRN Step One if no IV access. Sodium Chloride 10 ml 10/02/21 07:56 Sodium Chloride Flush 0.9% 10 Ml Syringe IVP PRN PRN NEEDED PER PROVIDER ORDERS Sodium Chloride 10 ml 10/02/21 08:00 Sodium Chloride Flush 0.9% 10 Ml Syringe IVP Q8H KEVIN Sodium Chloride 10 ml 10/02/21 09:00 Sodium Chloride Flush 0.9% 10 Ml Syringe IVP Q8H KEVIN Labetalol HCl 100 mg PO BID 07/22/17 Vitamin [Trinatal Rx 1] 1 each PO DAILY 07/22/17 Objective - Vital Signs/Intake & Output Reviewed Vital Signs: Yes Vital Signs: Vital Signs x48h Temp Pulse Resp BP Pulse Ox 10/04/21 07:42 98.6 F 79 18 131/80 H 100 10/04/21 06:43 98.1 F 70 15 139/89 H 100 Intake & Output: Intake & Output 10/01/21 10/02/21 10/03/21 10/04/21 23:59 23:59 23:59 23:59 Intake Total 1350 2709.367 Output Total 100 625 Balance 1350 2609.367 -625 - Objective General Appearance: positive: No acute distress Respiratory: positive: No respiratory distress Cardiovascular: positive: Regular rate & rhythm Abdomen: positive: Non-tender, No distention, Other (fundus firm) Extremities: positive: Non-tender, No pedal edema - Lab Results Fish Bones: 10/04/21 06:50 10/02/21 09:22 Other Labs: Lab Results x24hrs 10/04/21 Range/Units 06:50 WBC 15.5 H (4.8-10.8) x10^3/uL RBC 3.79 L (4.20-5.40) 10^6/uL Hgb 11.9 L (12.0-16.0) g/dL Hct 33.9 L (37.0-47.0) % MCV 89.4 (81.0-99.0) fL MCH 31.4 H (27.0-31.0) pg MCHC 35.1 (32.0-36.0) g/dL RDW 14.0 (12.0-15.0) % Plt Count 226 (130-450) 10^3/uL MPV 8.9 (7.9-10.8) fL Neut # (Auto) 12.5 H (1.5-6.6) 10^3/uL Lymph # (Auto) 2.1 (1.5-3.5) 10^3/uL [place] # (Auto) 0.8 (0.0-1.0) 10^3/uL Eos # (Auto) 0.1 (0.0-0.7) 10^3/uL Baso # (Auto) 0.1 (0.0-0.1) 10^3/uL Absolute Nucleated RBC 0.00 x10^3/uL Nucleated RBC % 0.0 /100WBC Assessment/Plan - Problem List (1) (normal spontaneous vaginal delivery) Impression: day 1. Meeting milestones. Labs wnl. Anticipate discharge on day 2. (2) Gestational hypertension Impression: BP wnl thus far. Will continue to monitor.
[2021-10-04] MEDS: buPROPion XL 150 MG TABLET PO SCH (20:20)
[2021-10-05] MEDS: ACETAMINOPHEN 500 MG TABLET PO SCH ×2 (00:08→08:23)
[2021-10-05] MEDS: IBUPROFEN 600 MG TABLET PO SCH ×2 (04:19→10:27)
[2021-10-05] MEDS: LEVOTHYROXINE 100 MCG TABLET PO SCH (07:39)
[2021-10-05] MEDS ORDERED: DOCUSATE SODIUM 100 MG CAPSULE PO SCH (09:00)
[2021-10-05] MEDS: FAMOTIDINE 20 MG TABLET PO SCH (09:17)
[2021-10-05 12:56] VITALS: BP 129/83
--- NOTE | 2021-10-05 14:02 | Discharge Plan ---
Discharge Plan Problem Reviewed?: Yes Disposition: Home, Self Care Condition: Stable Diet: Regular Activity Restrictions: Activity as Tolerated Shower Restrictions: No Driving Restrictions: Yes (while taking narcotics ) Instruction Topics: Vaginal Additional Instructions or Follow Up instructions: Return to ED for Systolic blood pressure of 160 or above or diastolic blood pressure of 110 or above. Follow up for persistent headache, vision changes or a right upper quadrant pain. No Smoking: If you smoke, Please STOP! Call for help. Follow-up with: Yasmani Ramos MD [Provider Admit Priv/Credential] - 1 Week
--- NOTE | 2021-10-05 14:11 | DISCHARGE SUMMARY ---
Discharge Summary Admit Date: 10/05/21 Discharge Date: 10/05/21 Discharging Provider: Smooth Griffith MD Condition at Discharge: Stable Discharge Disposition: 01 Home, Self Care - DIAGNOSES Admission Diagnoses: 37 weeks gestation, Gestational Hypertension Discharge Diagnoses with Status of Each Condition: s/p vaginal delivery, gestational hypertension - HOSPITAL COURSE Hospital Course: 31-year-old G2, P2 day 2 status post continuous vaginal delivery. Patient was admitted at 37 weeks for induction of labor secondary to gestational hypertension. She was induced with misoprostol and Lee bulb for cervical ripening followed by oxytocin. She underwent an uncomplicated spontaneous vaginal delivery. She met milestones and was stable for discharge on day 2. Her blood pressures remained normal to mild range. Her labs are within normal limits. She was stable for discharge with instructions to return to the emergency department for severe range blood pressures or persistent symptoms. She is instructed to follow-up within 48 to 72 hours for blood pressure check. - ALLERGIES Allergies/Adverse Reactions: Allergies Allergy/AdvReac Type Severity Reaction Status Date / Time No Known Drug Allergies Allergy Verified 01/31/15 21:24 - MEDICATIONS Home Medications: Ambulatory Orders Medication Instructions Recorded Confirmed Labetalol HCl 100 mg PO BID 07/22/17 07/22/17 Vitamin [Trinatal Rx 1] 1 each PO DAILY 07/22/17 07/22/17 - PHYSICAL EXAM AT DISCHARGE General Appearance: positive: No acute distress Respiratory: positive: No respiratory distress Abdomen: positive: Non-tender, Other (funducs firm ) - LABS Result Diagrams: 10/04/21 06:50 10/02/21 09:22 - FOLLOW UP Follow Up: Dr. Yasmani Ramos in 48 - 72 hours.
--- NOTE | 2021-10-05 16:12 | Labor Flowsheet ---
Labor Flowsheet Datetime Report Generated by CPN: 10/05/2021 16:12 Datetime: 10/05/2021 12:40 VITAL SIGNS NBP Sys/Debora/Mean (mmHg): 129 : 83 : 95 Pulse: 71 Datetime: 10/04/2021 11:44 SpO2 (%): 98 Datetime: 10/03/2021 23:24 Temperature (C): 36.7 Temperature Route: Oral Datetime: 10/03/2021 22:45 PAIN Pain Scale: 0 Datetime: 10/03/2021 21:35 Stage of : Recovery Datetime: 10/03/2021 21:30 LaborFlag: Labor Datetime: 10/03/2021 21:28 Patient Care Comments: Male Datetime: 10/03/2021 21:27 UTERINE ACTIVITY Monitor Mode: External Frequency (min): 2-4 Quality: Strong Duration (sec): 70-80 Pattern: Normal: <= 5 Contractions in 10 Minutes Resting Tone (Palpate): Relaxed FHR Baseline Rate : 140 Variability: Moderate 6-25 bpm Accelerations: None Decelerations: None Category: Category I Datetime: 10/03/2021 21:15 ASSESSMENT A Monitor Mode: External US Datetime: 10/03/2021 21:13 Contraction Comments: trial push with MD Datetime: 10/03/2021 21:12 VAGINAL EXAM Dilatation (cm): 10.0 Effacement (%): 100 Station: 2 Exam by: Dr. A Datetime: 10/03/2021 20:33 Monitor Interventions for UA: [place] Adjusted Datetime: 10/03/2021 20:15 FHR Baseline Changes: No Baseline Change COMMUNICATION Communication: Provider at Bedside Datetime: 10/03/2021 20:14 Patient Position/Activity: Right Lateral Datetime: 10/03/2021 20:11 Comments: nurse in room, audible decel Datetime: 10/03/2021 19:44 I/O Interventions: Linn Cath Inserted Datetime: 10/03/2021 19:31 Pain Presence: None/Denies Anesthesia Level Check: T9 Datetime: 10/03/2021 19:07 Anesthesia Comments: epidural placement completed using sterile technique. Pt tolerated well. Datetime: 10/03/2021 19:00 Epidural Procedure: Loading Dose Datetime: 10/03/2021 18:55 ANESTHESIA Epidural Positioning: Sitting Datetime: 10/03/2021 18:20 Pain Coping: Requesting Pain Medication or Epidural Datetime: 10/03/2021 18:08 Membrane Status: Ruptured Membranes Rupture Method: Artificial Amniotic Fluid Color: Clear Amniotic Fluid Amount: Moderate Amniotic Fluid Odor: Normal Datetime: 10/03/2021 17:30 MEDICATIONS Pitocin (milliunits): Increased to @ 16 Datetime: 10/03/2021 15:47 PATIENT CARE IV/Blood Work: IV Bag Number @ 2 Datetime: 10/03/2021 14:15 Respirations: 17 Pain Type: Cramping; Contraction Pain Location: Abdomen Pain Assessment Comments: pt comfortable through ctx Datetime: 10/03/2021 14:00 Provider Notified (Name): [place] Communication Comments: Provider notified about pt BP's and that pr linn balloon is out. Provider ok with BP's stated to notify if BP's reach severe range. Gave VO to decrease LR to 75ml/hr. Provider will be over to see pt this afternoon/evening. Datetime: 10/03/2021 13:15 Vital Sign Comments: Pt on birthing ball bp taken during ctx Datetime: 10/03/2021 13:13 Monitor Interventions for FHR: Ultrasound Adjusted Datetime: 10/03/2021 13:09 Cervical Ripening Agents: Linn Balloon Cervical Ripening Agents Other: linn balloon fell out Datetime: 10/03/2021 11:42 Analgesics/Sedatives: Fentanyl (mcg) @ 50 Datetime: 10/03/2021 11:24 Pitocin Checklist: At Least 1 Acceleration of 15 bpm x 15 Seconds in 30 Minutes or Adequate Variabi lity; No More than 1 Late Deceleration Occurred in Past 30 Minutes; No More than 2 Variable Decelerat ions > 60 Seconds in Duration and decreasing >60 bpm in 30 minutes; No More than 5 Uterine Contractio ns in 10 Minutes for any 20 Minute Interval; Uterus Palpates Soft between Contractions Datetime: 10/03/2021 10:18 Cervix, Consistency: Moderate Datetime: 10/03/2021 08:54 Medication Comments: pitocin off Datetime: 10/03/2021 07:38 MATERNAL ASSESSMENT Level of Consciousness: Alert DTR's/Clonus: DTRs 1+ Headache: Denies Breath Sounds, Left: Clear and Equal Breath Sounds, Right: Clear and Equal Nausea/Vomiting: Denies RUQ Epigastric Pain: Denies Comfort Measures: Breathing/Relaxation Datetime: 10/03/2021 00:21 Cervix, Position: Midposition Datetime: 10/03/2021 00:15 Provider Reviewed Strip: Yes Strip Reviewed by: Dr. Ramos Datetime: 10/02/2021 22:00 Notification Reason: Status Update Datetime: 10/02/2021 17:32 Vaginal Bleeding: None
== END 2021-10-05 15:15 | disposition home or self-care (01) | DRG 807 ==
LOC: WFO 07:30 → FBP 07:32 → WFO 08:39 → FBP 08:40 → OBSVTOIN 18:09
PROVIDERS: ADMIT Obstetrics & Gynecology; ATTEND Obstetrics & Gynecology
PROC: 10E0XZZ Delivery of Products of Conception, External Approach (ICD-10-PCS; principal; 2021-10-03)
PROC: 10907ZC Drainage of Amniotic Fluid, Therapeutic from Products of Conception, Via Natural or Artificial Opening (ICD-10-PCS; 2021-10-03)
DX: O13.4 Gestational [pregnancy-induced] hypertension without significant proteinuria, complicating childbirth (principal); Z37.0 Single live birth; O69.81X0 Labor and delivery complicated by cord around neck, without compression, not applicable or unspecified; Z3A.37 37 weeks gestation of pregnancy; O99.284 Endocrine, nutritional and metabolic diseases complicating childbirth; E03.9 Hypothyroidism, unspecified; Z87.891 Personal history of nicotine dependence; O99.214 Obesity complicating childbirth
CPT/HCPCS: 36415; 80053; 85025; 86850; 86900; 86901; 87350; A9270; J7120

== ENCOUNTER 2021-10-10 16:05 | Outpatient (CLI) | payer MEDICAID ==
--- NOTE | 2021-10-10 16:59 | Ultrasound Report ---
PROCEDURE: Duplex Ext Veins Left INDICATIONS: LOWER EXTREMITY EDEMA TECHNIQUE: Real-time imaging, as well as color and pulse Doppler interrogation, were performed of the lower extr emity deep veins from the inguinal ligament to the popliteal fossa. COMPARISON: None. FINDINGS: The deep veins are normally compressible, and free of intraluminal thrombus. Color and pu lse Doppler demonstrate normal phasic intraluminal flow. There is normal augmentation response to di stal compression maneuver. IMPRESSION: Negative left lower extremity duplex ultrasound for DVT. Reviewed by: Edi Brooke MD on 10/10/2021 4:57 PM PDT Approved by: Edi Brooke MD on 10/10/2021 4:57 PM PDT Station ID: [id number]
== END 2021-10-10 16:06 | disposition home or self-care (01) ==
LOC: DI 16:05
PROVIDERS: ATTEND Obstetrics & Gynecology
DX: Z39.1 Encounter for care and examination of lactating mother (principal); O90.89 Other complications of the puerperium, not elsewhere classified; R60.0 Localized edema